=== PATIENT | male | born 1950 | race Caucasian/White ===

== ENCOUNTER → 2018-07-24 07:55 | Outpatient (CLI) | payer MEDICARE, OTHER, SELFPAY ==
[2018-07-24 09:21] LABS: Add Manual Diff / Slide Review NO; Basophils Absolute Auto 0 /uL (0-100); Eosinophils Absolute Auto 200 /uL (0-450); Eosinophils Percent Auto 5.9 % (2-4); Hematocrit 44.5 % (41-53); Hemoglobin 15.7 g/dL (13.5-17.5); Lymphocytes Absolute Auto 1100 /uL (1100-4500); Lymphocytes Percent Auto 25.4 % (25-40); Mean Corpuscular HGB Conc 35.4 % (30-36); Mean Corpuscular Hemoglobin 34.3 PG (26-34); Mean Corpuscular Volume 96.7 fL (80-100); Monocytes Absolute Auto 700 /uL (0-900); Neutrophils Absolute Auto 2200 /uL (1500-7000); Neutrophils Percent Auto 51.7 % (50-75); Platelet Count 196 X10^3/uL (150-400); Red Blood Cell Count 4.59 X10^6/uL (4.5-5.9); Red Cell Distribution Width 13.2 % (11.6-14.8); White Blood Cell Count 4.2 X10^3/uL (4.5-11.0)
[2018-07-24 09:51] LABS: Alanine Aminotransferase 27 IU/L (21-72); Albumin 4.6 g/dL (3.5-5.0); Albumin Globulin Ratio 1.4 (1.0-2.8); Alkaline Phosphatase 75 U/L (38-126); Aspartate Aminotransferase 27 IU/L (17-59); BUN Creatinine Ratio 17.8 (6-22); Bilirubin Total 1.1 mg/dL (0.2-1.3); Blood Urea Nitrogen 16 mg/dL (9-20); Calcium 9.7 mg/dL (8.4-10.2); Carbon Dioxide 26 mmol/L (22-32); Chloride 102 mmol/L (98-107); Cholesterol 191 mg/dL (140-199); Estimated Glomerular Filt Rate > 60.0 mL/min (>60); Globulin 3.3 g/dL (1.7-4.1); Glucose 100 mg/dL (80-110); HDL Cholesterol 39 mg/dL (40-60); HEMOLYSIS < 15 (0-50); LDL Cholesterol Calculated 126 mg/dL (<100); Potassium 3.5 mmol/L (3.4-5.1); Sodium 138 mmol/L (137-145); Total Protein 7.9 g/dL (6.3-8.2); Triglycerides 131 mg/dL (35-150)
[2018-07-24 10:12] LABS: Thyroid Stimulating Hormone 2.86 uIU/mL (0.47-4.68)
[2018-07-24 10:17] LABS: Prostate Specific Antigen Scrn 6.74 ng/mL (0.1-4.0)
== END ==
PROVIDERS: Visit Provider Internal Medicine
DX: I10 Essential (primary) hypertension (principal); E66.9 Obesity, unspecified; E78.00 Pure hypercholesterolemia, unspecified; K22.710 Barrett's esophagus with low grade dysplasia; Z12.5 Encounter for screening for malignant neoplasm of prostate
CPT/HCPCS: 36415; 80053; 80061; 84443; 85025; G0103

== ENCOUNTER → 2018-10-04 07:30 | Outpatient (CLI) | payer MEDICARE, OTHER, SELFPAY ==
[2018-10-04 12:46] LABS: Prostate Specific Antigen 6.08 ng/mL (0.10-4.00)
== END ==
PROVIDERS: PCP Internal Medicine; Visit Provider Urology
DX: R97.20 Elevated prostate specific antigen [PSA] (principal)
CPT/HCPCS: 36415; 84153

== ENCOUNTER → 2018-10-18 07:45 | Outpatient (CLI) | payer MEDICARE, OTHER, SELFPAY ==
[2018-10-18 09:47] LABS: Alanine Aminotransferase 31 IU/L (21-72); Aspartate Aminotransferase 32 IU/L (17-59); Cholesterol 158 mg/dL (140-199); HDL Cholesterol 40 mg/dL (40-60); LDL Cholesterol Calculated 95 mg/dL (<100); Triglycerides 116 mg/dL (35-150)
== END ==
PROVIDERS: PCP Internal Medicine; Visit Provider Internal Medicine
DX: E78.2 Mixed hyperlipidemia (principal)
CPT/HCPCS: 36415; 80061; 84450; 84460

== ENCOUNTER 2018-11-27 11:25 | Emergency (ER) | payer MEDICARE, OTHER, SELFPAY ==
[2018-11-27 11:44] VITALS: BP 140/77; PULSE 79; RESP 18; TEMP 37.3; O2SAT 99; BMI 33.5
--- NOTE | 2018-11-27 12:04 | ED_ITS ---
HPI - Fever <MAYRA Phillips - Last Filed: 11/27/18 19:35> General Chief Complaint: Fever Stated Complaint: post biopsy fever Time Seen by Provider: 11/27/18 11:27 Source: patient Mode of arrival: ambulatory Limitations: no limitations History of Present Illness HPI Narrative: 68-year-old male with history of enlarged prostate who just underwent a prostate biopsy at [facility] yesterday performed by Dr. Tran (per patient), presents emergency department today complaining of chills and fever starting this morning. He states the procedure went well, he had a small amount of blood in his urine afterwards but otherwise felt well. He was taking Cipro the day before the day of and the day after (today) as directed. He reports a small amount of postnasal drip from allergies but she has had for the past few weeks. He denies chest pain, shortness of breath, dysu dileep, rectal pressure, complaints of a full bladder, difficulty urinating other than some hesitancy which he has had before the procedure, abdominal pain, nausea, vomiting, diarrhea, headaches, weakness, change in vision, or syncope. Patient stated he called [facility] today and he was told to come to the emergency department in [place]. complaint: fever Related Data Home Medications Medication Instructions Recorded Confirmed amlodipine 10 mg PO DAILY 11/27/18 11/27/18 atorvastatin 20 mg PO QPM 11/27/18 11/27/18 ciprofloxacin HCl 500 mg PO BID 11/27/18 11/27/18 olmesartan 40 mg PO DAILY 11/27/18 11/27/18 triamterene-hydrochlorothiazid 1 cap PO DAILY 11/27/18 11/27/18 Previous Rx's Medication Instructions Recorded sulfamethoxazole-trimethoprim 1 tab PO BID 14 Days #28 tab 11/27/18 [Bactrim DS] sulfamethoxazole-trimethoprim 1 tab PO BID 14 Days #28 tab 11/27/18 [Bactrim DS] Allergies Allergy/AdvReac Type Severity Reaction Status Date / Time No Known Drug Allergies Allergy Verified 11/27/18 11:47 Review of Systems <MAYRA Phillips - Last Filed: 11/27/18 19:35> Review of Systems REVIEW OF SYSTEMS: GENERAL: Complains of fevers, see HPI. HENT: No head trauma, sore throat, or dysphagia. EYES: No loss of vision, double vision, eye pain, or irritation. CARDIOVASCULAR: No chest pain, palpitations, or orthopnea. RESPIRATORY: No shortness of breath or cough. GASTROINTESTINAL: Denies abdominal pain or vomiting. GENITOURINARY: Complains of small amount of blood in the urine as well as recent prostate biopsy, see HPI. MUSCULOSKELETAL: No pain, weakness, or trauma. INTEGUMENTARY: No rash, lesions, or pruritus. NEURO: No numbness, tingling, memory loss, confusion, or headaches. PSYCH: No behavior or mood changes. PFSH <MAYRA Phillips - Last Filed: 11/27/18 19:35> Medical History No significant medical problems (Acute) Urinary hesitancy (Acute) Social History Smoking Status: Never smoker Social History Smoking Status: Never smoker Exam <MAYRA Phillips - Last Filed: 11/27/18 19:35> Initial Vital Signs Initial Vital Signs: Vital Signs Temperature 99.2 F 11/27/18 11:44 Pulse Rate 79 11/27/18 11:44 Respiratory Rate 18 11/27/18 11:44 Blood Pressure 140/77 11/27/18 11:44 Pulse Oximetry 99 11/27/18 11:44 PHYSICAL EXAMINATION: GENERAL: Well groomed, alert, and cooperative. Answers questions promptly and appropriately. Patient appears mildly flushed. Vital signs noted. HENT: Normocephalic, atraumatic. Hearing intact. Oral mucosa is pink and moist. EYES: Conjunctiva pink, sclera white, no periorbital swelling. CARDIOVASCULAR: S1 and S2 sounds normal. Regular rate and rhythm, no murmurs, clicks, or bruits. No pedal edema. RESPIRATORY: Normal respiratory rate, trachea midline, airway patent. No stridor, nasal flaring or accessory muscle use. Lungs are clear in all burns without wheeze, rhonchi, or crackles. GASTROINTESTINAL: Bowel sounds normoactive. Abdomen is soft and non-tender. No organomegaly, no palpable masses. GENITALURINARY: No flank tenderness. MUSCULOSKELETAL: Normal gait and coordination. Equal tone and mass bilaterally. EXTREMITIES: CMS intact, no pedal edema. SKIN: Warm, dry, soft, appropriate color for ethnicity. No lesions, rashes, or wounds. NEURO: Alert and Oriented X 3. Good coordination. No ataxia, or sensory deficits, or cognitive issues. PSYCH: Appropriate affect and mood. <Manav Foster DO - Last Filed: 11/27/18 19:41> Initial Vital Signs Initial Vital Signs: Vital Signs Temperature 99.2 F 11/27/18 11:44 Pulse Rate 79 11/27/18 11:44 Respiratory Rate 18 11/27/18 11:44 Blood Pressure 140/77 11/27/18 11:44 Pulse Oximetry 99 11/27/18 11:44 Course <MAYRA Phillips - Last Filed: 11/27/18 19:35> Course Narrative: Patient was given 2gms of ceftriaxone IV and was sent home with Bactrim DS 1 pill b.i.d. x 14 days as directed by Dr. Yadav from [facility]. Strict return precautions given, patient was instructed to follow up with Urology as soon as possible and call him tomorrow to update them on his progress. Orders Ordered: ED Orders 11/27/18 12:20 Complete Blood Count AUTO DIFF Stat Comprehensive Metabolic Panel Stat Urine Culture Stat Urine Microscopic Stat Discontinued Medications Ceftriaxone Sodium (Rocephin) 2,000 mg IM NOW ONE Stop: 11/27/18 13:04 Last Admin: 11/27/18 13:46 Dose: Not Given Ceftriaxone Sodium/Dextrose (Rocephin) 2 gm in 50 mls @ 100 mls/hr IV NOW ONE Stop: 11/27/18 13:35 Last Infusion: 11/27/18 14:00 Dose: 0 mls/hr Admin: 11/27/18 13:27 Dose: 100 mls/hr Lidocaine HCl (Xylocaine 1%) 4.2 ml INJ NOW ONE Stop: 11/27/18 13:04 Last Admin: 11/27/18 13:46 Dose: Not Given Consultations Consultation #1: Dr. Yadav from [facility] was consulted about patient's condition, discussed that patient was appropriate to be treated outpatient with Bactrim. Discussed that he should follow-up with the clinic as soon as possible and give the clinic a call to multiple update them on his progress. Time: 13:00 Consultation #2: Patient staffed with Dr. Foster. Vital Signs - 8 hr 11/27/18 11:44 11/27/18 13:28 Temperature 99.2 F Pulse Rate 79 73 Respiratory Rate 18 16 Blood Pressure 140/77 Blood Pressure [Left Arm] 137/74 Pulse Oximetry 99 98 <Manav Foster DO - Last Filed: 11/27/18 19:41> Orders Ordered: ED Orders 11/27/18 12:20 Complete Blood Count AUTO DIFF Stat Comprehensive Metabolic Panel Stat Urine Culture Stat Urine Microscopic Stat Discontinued Medications Ceftriaxone Sodium (Rocephin) 2,000 mg IM NOW ONE Stop: 11/27/18 13:04 Last Admin: 11/27/18 13:46 Dose: Not Given Ceftriaxone Sodium/Dextrose (Rocephin) 2 gm in 50 mls @ 100 mls/hr IV NOW ONE Stop: 11/27/18 13:35 Last Infusion: 11/27/18 14:00 Dose: 0 mls/hr Admin: 11/27/18 13:27 Dose: 100 mls/hr Lidocaine HCl (Xylocaine 1%) 4.2 ml INJ NOW ONE Stop: 11/27/18 13:04 Last Admin: 11/27/18 13:46 Dose: Not Given Vital Signs - 8 hr 11/27/18 11:44 11/27/18 13:28 Temperature 99.2 F Pulse Rate 79 73 Respiratory Rate 18 16 Blood Pressure 140/77 Blood Pressure [Left Arm] 137/74 Pulse Oximetry 99 98 MDM - Fever <MAYRA Phillips - Last Filed: 11/27/18 19:35> Medical Records Attestation: I reviewed the patient's medical records. Lab Data Attestation: I reviewed the patient's lab results. Result diagrams: 11/27/18 12:20 11/27/18 12:20 Lab Results 11/27/18 11/27/18 11/27/18 Range/Units 12:20 12:20 12:20 WBC 11.9 H (4.5-11.0) X10^3/uL RBC 4.71 (4.5-5.9) X10^6/uL Hgb 15.9 (13.5-17.5) g/dL Hct 45.7 (41-53) % MCV 97.0 (80-100) fL MCH 33.8 (26-34) PG MCHC 34.8 (30-36) % RDW 12.7 (11.6-14.8) % Plt Count 169 (150-400) X10^3/uL Neut % (Auto) 86.2 H (50-75) % Lymph % (Auto) 3.9 L (25-40) % Ness % (Auto) 9.4 (3-14) % Eos % (Auto) 0.3 L (2-4) % Baso % (Auto) 0.2 (0-2) % Neut # (Auto) 73956 H (7211-1653) /uL Lymph # (Auto) 500 L (2421-0753) /uL Ness # (Auto) 1100 H (0-900) /uL Eos # (Auto) 0 (0-450) /uL Baso # (Auto) 0 (0-100) /uL Sodium 137 (137-145) mmol/L Potassium 3.6 (3.4-5.1) mmol/L Chloride 98 (98-107) mmol/L Carbon Dioxide 25 (22-32) mmol/L BUN 16 (9-20) mg/dL Creatinine 1.00 (0.66-1.25) mg/dL Estimated GFR > 60.0 (>60) mL/min BUN/Creatinine Ratio 16.0 (6-22) Glucose 114 H (80-110) mg/dL Calcium 9.6 (8.4-10.2) mg/dL Total Bilirubin 1.6 H (0.2-1.3) mg/dL AST 29 (17-59) IU/L ALT 27 (21-72) IU/L Alkaline Phosphatase 91 (38-126) U/L Total Protein 8.2 (6.3-8.2) g/dL Albumin 4.7 (3.5-5.0) g/dL Globulin 3.5 (1.7-4.1) g/dL Albumin/Globulin Ratio 1.3 (1.0-2.8) Urine RBC >100/hpf (0-5/HPF) Urine WBC 1-5/hpf (0-5/HPF) Ur Squamous Epith Cells 0-1 /hpf (0-5/HPF) Urine Bacteria Few (2-10) H (None) Ur Culture Indicated? Specimen cultured Micro UA Comment Leann esterase + Urine Dip Bedside Urine Glucose Negative Bedside Urine Bilirubin - Negative Bedside Urine Ketone +/- 5 Urine Specific [place] 1.015 Bedside Urine Occult Blood +++ Bedside Urine pH 6.0 Bedside Urine Protein +/- 15 Bedside Urine Urobilinogen - Negative Bedside Urine Nitrite - Negative Bedside Urine Leukocytes + 70 Esterase MDM Narrative Medical decision making narrative: 68-year-old male 1 day postop from a prostate biopsy presents with a fever. I suspect that he has acute bacterial prostatitis from his recent procedure due to slightly increased white blood cell count, positive urinalysis containing leukocyte Estrace, , bacteria and white blood cells, and elevated temperature with associated chills. [facility], where the procedure was performed, was contacted for specifics on plan of care. I do not suspect sepsis as his high blood cells were only slightly elevated, he was not tachycardic, and his temperature was below 100.3 F. strict return precautions given and follow-up instructions discussed. <Manav Foster DO - Last Filed: 11/27/18 19:41> Lab Data Lab Results 11/27/18 11/27/18 11/27/18 Range/Units 12:20 12:20 12:20 WBC 11.9 H (4.5-11.0) X10^3/uL RBC 4.71 (4.5-5.9) X10^6/uL Hgb 15.9 (13.5-17.5) g/dL Hct 45.7 (41-53) % MCV 97.0 (80-100) fL MCH 33.8 (26-34) PG MCHC 34.8 (30-36) % RDW 12.7 (11.6-14.8) % Plt Count 169 (150-400) X10^3/uL Neut % (Auto) 86.2 H (50-75) % Lymph % (Auto) 3.9 L (25-40) % Ness % (Auto) 9.4 (3-14) % Eos % (Auto) 0.3 L (2-4) % Baso % (Auto) 0.2 (0-2) % Neut # (Auto) 55308 H (7431-3591) /uL Lymph # (Auto) 500 L (7985-0327) /uL Ness # (Auto) 1100 H (0-900) /uL Eos # (Auto) 0 (0-450) /uL Baso # (Auto) 0 (0-100) /uL Sodium 137 (137-145) mmol/L Potassium 3.6 (3.4-5.1) mmol/L Chloride 98 (98-107) mmol/L Carbon Dioxide 25 (22-32) mmol/L BUN 16 (9-20) mg/dL Creatinine 1.00 (0.66-1.25) mg/dL Estimated GFR > 60.0 (>60) mL/min BUN/Creatinine Ratio 16.0 (6-22) Glucose 114 H (80-110) mg/dL Calcium 9.6 (8.4-10.2) mg/dL Total Bilirubin 1.6 H (0.2-1.3) mg/dL AST 29 (17-59) IU/L ALT 27 (21-72) IU/L Alkaline Phosphatase 91 (38-126) U/L Total Protein 8.2 (6.3-8.2) g/dL Albumin 4.7 (3.5-5.0) g/dL Globulin 3.5 (1.7-4.1) g/dL Albumin/Globulin Ratio 1.3 (1.0-2.8) Urine RBC >100/hpf (0-5/HPF) Urine WBC 1-5/hpf (0-5/HPF) Ur Squamous Epith Cells 0-1 /hpf (0-5/HPF) Urine Bacteria Few (2-10) H (None) Ur Culture Indicated? Specimen cultured Micro UA Comment Leann esterase + Urine Dip Bedside Urine Glucose Negative Bedside Urine Bilirubin - Negative Bedside Urine Ketone +/- 5 Urine Specific [place] 1.015 Bedside Urine Occult Blood +++ Bedside Urine pH 6.0 Bedside Urine Protein +/- 15 Bedside Urine Urobilinogen - Negative Bedside Urine Nitrite - Negative Bedside Urine Leukocytes + 70 Esterase Discharge Plan Departure Patient Disposition: Home Clinical Impression: Prostatitis, acute Discharge Date/Time: 11/27/18 14:00 Interventions: ED Discharge Assessment Last Done: 11/27/18 14:12 Instructions: DI for Fever (Symptom) -- Adult, DI for Acute Prostatitis Activity Restrictions/Additional Instructions: Thank you for entrusting me with your care today. As discussed, from your lab results it appears he may have bacterial prostatitis which is a common complication of a prostate biopsy. I prescribed you an antibiotic please take this as directed until it is completely gone. Call [facility] tomorrow and let them know how you are doing. Please keep your follow up appointment that is currently scheduled for Dec 05. Return to the emergency department if for uncontrollable vomiting, chest pain, high fevers that do no respond to ibuprofen or tylenol, or worsening symptoms. Prescriptions: New sulfamethoxazole-trimethoprim [Bactrim DS] 800-160 mg tablet 1 tab PO BID 14 Days Qty: 28 RF: 0 sulfamethoxazole-trimethoprim [Bactrim DS] 800-160 mg tablet 1 tab PO BID 14 Days Qty: 28 RF: 0 No Action atorvastatin 20 mg tablet 20 mg PO QPM RF: 0 triamterene-hydrochlorothiazid 37.5-25 mg capsule 1 cap PO DAILY RF: 0 amlodipine 10 mg tablet 10 mg PO DAILY RF: 0 olmesartan 40 mg tablet 40 mg PO DAILY RF: 0 ciprofloxacin HCl 500 mg tablet 500 mg PO BID RF: 0 Referrals: Avelino Samson MD [Primary Care Provider] - <Manav Foster DO - Last Filed: 11/27/18 19:41> Cosign ED Attending Coskaylynnature Attestation: I was immediately available in the department for consultation. Documentation has been reviewed. I agree with assessment and plan.
[2018-11-27 12:28] LABS: Add Manual Diff / Slide Review NO; Basophils Absolute Auto 0 /uL (0-100); Basophils Percent Auto 0.2 % (0-2); Eosinophils Absolute Auto 0 /uL (0-450); Eosinophils Percent Auto 0.3 % (2-4); Hematocrit 45.7 % (41-53); Hemoglobin 15.9 g/dL (13.5-17.5); Lymphocytes Absolute Auto 500 /uL (1100-4500); Lymphocytes Percent Auto 3.9 % (25-40); Mean Corpuscular HGB Conc 34.8 % (30-36); Mean Corpuscular Hemoglobin 33.8 PG (26-34); Monocytes Absolute Auto 1100 /uL (0-900); Monocytes Percent Auto 9.4 % (3-14); Neutrophils Absolute Auto 10300 /uL (1500-7000); Neutrophils Percent Auto 86.2 % (50-75); Platelet Count 169 X10^3/uL (150-400); Red Blood Cell Count 4.71 X10^6/uL (4.5-5.9); Red Cell Distribution Width 12.7 % (11.6-14.8); White Blood Cell Count 11.9 X10^3/uL (4.5-11.0)
[2018-11-27 12:40] LABS: Albumin 4.7 g/dL (3.5-5.0); Albumin Globulin Ratio 1.3 (1.0-2.8); Blood Urea Nitrogen 16 mg/dL (9-20); Calcium 9.6 mg/dL (8.4-10.2); Carbon Dioxide 25 mmol/L (22-32); Estimated Glomerular Filt Rate > 60.0 mL/min (>60); Globulin 3.5 g/dL (1.7-4.1); Glucose 114 mg/dL (80-110); HEMOLYSIS < 15 (0-50); Potassium 3.6 mmol/L (3.4-5.1); Sodium 137 mmol/L (137-145); Total Protein 8.2 g/dL (6.3-8.2)
[2018-11-27 12:42] LABS: Alanine Aminotransferase 27 IU/L (21-72); Alkaline Phosphatase 91 U/L (38-126); Aspartate Aminotransferase 29 IU/L (17-59); Bilirubin Total 1.6 mg/dL (0.2-1.3)
[2018-11-27 12:45] LABS: RBC Urine >100/HPF (0-5/HPF); Squamous Epithelial Cell Urine 0-1 /HPF (0-5/HPF); WBC Urine 1-5/HPF (0-5/HPF)
[2018-11-27 12:46] LABS: Bacteria Urine Few (2-10); Culture Indicated Urine Specimen Cultured; Urine Comments LEU ESTERASE +
[2018-11-27 13:02] LABS: Chloride 98 mmol/L (98-107)
[2018-11-27] MEDS: CEFTRIAXONE 2 GM/50 ML FROZ.PIGGY IV (13:27)
[2018-11-27 13:28] VITALS: BP 137/74; PULSE 73; RESP 16; O2SAT 98
== END 2018-11-27 14:00 | disposition home or self-care (01) ==
PROVIDERS: Emergency Provider Nurse Practitioner; PCP Internal Medicine
DX: N41.0 Acute prostatitis (principal)
CPT/HCPCS: 36415; 80053; 81003; 81015; 85025; 87086; 96365; 99283; 99284; J0696

== ENCOUNTER → 2019-04-05 07:53 | Outpatient (CLI) | payer MEDICARE, OTHER, SELFPAY ==
[2019-04-05 09:47] LABS: Blood Urea Nitrogen 17 mg/dL (9-20); Carbon Dioxide 29 mmol/L (22-32); Chloride 100 mmol/L (98-107); Estimated Glomerular Filt Rate > 60.0 mL/min (>60); Glucose 99 mg/dL (80-110); HEMOLYSIS < 15 (0-50); Potassium 3.9 mmol/L (3.4-5.1); Sodium 139 mmol/L (137-145)
== END ==
PROVIDERS: PCP Internal Medicine; Visit Provider Internal Medicine
DX: I10 Essential (primary) hypertension (principal); E78.00 Pure hypercholesterolemia, unspecified; E78.2 Mixed hyperlipidemia
CPT/HCPCS: 36415; 80048

== ENCOUNTER → 2019-04-16 08:10 | Outpatient (CLI) | payer MEDICARE, OTHER, SELFPAY ==
[2019-04-16 08:53] LABS: Add Manual Diff / Slide Review NO; Basophils Absolute Auto 100 /uL (0-100); Basophils Percent Auto 0.6 % (0-2); Eosinophils Absolute Auto 200 /uL (0-450); Hematocrit 46.1 % (41-53); Hemoglobin 16.2 g/dL (13.5-17.5); Lymphocytes Absolute Auto 900 /uL (1100-4500); Lymphocytes Percent Auto 8.3 % (25-40); Mean Corpuscular HGB Conc 35.1 % (30-36); Mean Corpuscular Hemoglobin 33.9 PG (26-34); Mean Corpuscular Volume 96.6 fL (80-100); Monocytes Absolute Auto 1200 /uL (0-900); Monocytes Percent Auto 10.5 % (3-14); Neutrophils Absolute Auto 8700 /uL (1500-7000); Neutrophils Percent Auto 78.6 % (50-75); Platelet Count 187 X10^3/uL (150-400); Red Blood Cell Count 4.77 X10^6/uL (4.5-5.9); Red Cell Distribution Width 12.8 % (11.6-14.8)
[2019-04-16 09:29] LABS: Erythrocyte Sedimentation Rate 3 MM/HR (0-15)
== END ==
PROVIDERS: PCP Internal Medicine; Visit Provider Internal Medicine
DX: Z23 Encounter for immunization (principal); I74.3 Embolism and thrombosis of arteries of the lower extremities; M35.3 Polymyalgia rheumatica
CPT/HCPCS: 36415; 85025; 85651

== ENCOUNTER → 2019-04-30 15:41 | Outpatient (CLI) | payer MEDICARE, OTHER, SELFPAY ==
--- NOTE | 2019-04-30 | DI.ECHO.S_ITS ---
[place] [facility]---------+ [facility] +---------+ : : [address] : : : : [id number] : : : : Phone: [phone]+ Echocardiogram Report + + :Name: VU JACOME JR Study Date: 04/30/2019 Height: 54 in : :[facility] Weight: 195 lb : : Gender: Male BSA: 1.7 m2 : :: 1950 Age: 68 yrs BP: 142/86 mmHg: :Reason For Study: Hypertension : :Ordering Physician: Dr. You : :[place] Performed By: Walt Silva : :Referring: BG CAMPBELL : + + Interpretation Summary Mild concentric left ventricular hypertrophy with ejection fraction 55-60%. Mild aortic valve sclerosis. Mildly dilated aortic root. Procedure: A two-dimensional transthoracic echocardiogram with color flow and Doppler was performed. The study quality was technically adequate. There is no prior echocardiogram noted for this patient. The patient was in normal sinus rhythm during the exam. Left Ventricle: The left ventricle is normal in size. There is mild concentric left ventricular hypertrophy. The ejection fraction is estimated to be 55-60%. Left ventricular wall motion is normal. Right Ventricle: The right ventricle is normal in size and function. Atria: The left atrial size is normal. Right atrial size is normal. The interatrial septum is intact with no evidence for an atrial septal defect. Mitral Valve: The mitral valve is normal in structure and function. There is trace mitral regurgitation. Aortic Valve: The aortic valve is trileaflet. The aortic valve opens well. There is mild aortic valve sclerosis. No aortic regurgitation is present. Tricuspid Valve: The tricuspid valve is normal in structure and function. There is trace tricuspid regurgitation. Pulmonary artery pressures cannot be estimated because of the lack of a measurable TR jet velocity. Pulmonic Valve: The pulmonic valve is not well visualized. There is mild pulmonic regurgitation. Great Vessels: The aortic root is mildly dilated. The dimensions of the ascending aorta are normal. The pulmonary artery is normal size. The IVC is of normal diameter and collapses greater than 50% with a sniff. This suggests a low right atrial pressure of 3 mm Hg. Pericardium/ Pleura There is no pericardial effusion. There is no pleural effusion. MMode/2D Measurements & Calculations LVIDd: 4.6 cm LVOT diam: 2.3 cm LVIDs: 2.8 cm Ao root diam: 3.9 cm FS: 39.4 % Aortic Jxn: 2.8 cm EPSS: 0.66 cm asc Aorta Diam: 3.5 cm IVSd: 1.1 cm LVPWd: 1.1 cm LV garza. diameter/BSA (cm/m^2): 2.7 LV sys. diameter/BSA (cm/m^2): 1.6 LA A2 area: 17.4 cm2 RA long axis: 5.7 cm LA A4 area: 21.1 cm2 RA area: 12.0 cm2 LA length (vol): 5.6 cm RA vol: 21.5 ml LA vol: 55.3 ml RA : 12.6 ml/m2 LA vol index: 32.3 ml/m2 TAPSE: 2.2 cm Doppler Measurements & Calculations Ao V2 max: 112.6 cm/sec LVOT Max Wyatt: 88.5 cm/sec Ao V2 mean: 77.0 cm/sec LV V1 max P.1 mmHg Ao max P.1 mmHg LV V1 VTI: 20.1 cm Ao mean P.7 mmHg SAHNA(I,D): 3.8 cm2 Ao V2 VTI: 22.2 cm SHANA(V,D): 3.3 cm2 sev ratio: 0.91 SHANA indexed to BSA (cm^2/m^2): 2.2 MV E max wyatt: 71.5 cm/sec PA V2 max: 48.4 cm/sec MV A max wyatt: 102.2 cm/sec PA V2 mean: 32.6 cm/sec MV E/A: 0.70 PA mean P.50 mmHg Med Peak E' Wyatt: 9.5 cm/sec PA Accel Time: 0.07 sec E/E' med: 7.5 Lat Peak E' Wyatt: 11.6 cm/sec E/E' lat: 6.1 E/e' average: 6.8 MV dec time: 0.20 sec SV(LVOT): 84.9 ml Electronically signed by: Ayad Lamar on Reading Physician:04/30/2019 04:32 PM
== END ==
PROVIDERS: PCP Internal Medicine; Visit Provider Internal Medicine
DX: I35.8 Other nonrheumatic aortic valve disorders (principal); I37.1 Nonrheumatic pulmonary valve insufficiency; I10 Essential (primary) hypertension; I74.3 Embolism and thrombosis of arteries of the lower extremities
CPT/HCPCS: 93306

== ENCOUNTER → 2019-05-21 08:59 | Outpatient (CLI) | payer MEDICARE, OTHER, SELFPAY ==
[2019-05-21 10:23] LABS: Prostate Specific Antigen 4.75 ng/mL (0.10-4.00)
== END ==
PROVIDERS: PCP Internal Medicine; Visit Provider Urology
DX: R97.20 Elevated prostate specific antigen [PSA] (principal)
CPT/HCPCS: 36415; 84153

== ENCOUNTER → 2020-01-22 07:13 | Outpatient (CLI) | payer MEDICARE, OTHER, SELFPAY ==
[2020-01-22 09:25] LABS: Alanine Aminotransferase 24 IU/L (<50); Albumin 4.2 g/dL (3.5-5.0); Albumin Globulin Ratio 1.4 (1.0-2.8); Alkaline Phosphatase 69 U/L (38-126); Aspartate Aminotransferase 31 IU/L (17-59); BUN Creatinine Ratio 19.3 (6-22); Bilirubin Total 0.8 mg/dL (0.2-1.3); Blood Urea Nitrogen 17 mg/dL (9-20); Calcium 9.3 mg/dL (8.4-10.2); Carbon Dioxide 25 mmol/L (22-32); Chloride 103 mmol/L (98-107); Cholesterol 139 mg/dL (140-199); Estimated Glomerular Filt Rate > 60.0 mL/min (>60); Globulin 2.9 g/dL (1.7-4.1); Glucose 87 mg/dL (80-110); HDL Cholesterol 51 mg/dL (40-60); HEMOLYSIS < 15 (0-50); LDL Cholesterol Calculated 73 mg/dL (<100); Potassium 3.8 mmol/L (3.4-5.1); Sodium 139 mmol/L (137-145); Total Protein 7.1 g/dL (6.3-8.2); Triglycerides 75 mg/dL (35-150)
== END ==
PROVIDERS: PCP Internal Medicine; Referring Provider Internal Medicine; Visit Provider Urology
DX: E78.00 Pure hypercholesterolemia, unspecified (principal); E78.2 Mixed hyperlipidemia; R97.20 Elevated prostate specific antigen [PSA]
CPT/HCPCS: 36415; 80053; 80061; 84153

== ENCOUNTER → 2020-05-28 07:49 | Outpatient (CLI) | payer MEDICARE, OTHER, SELFPAY ==
[2020-05-28] MEDS: COVID-19 VACC #1, MRNA(MOD) 100 MCG/0.5 ML VIAL IM (07:54)
== END ==
PROVIDERS: PCP Internal Medicine; Visit Provider Internal Medicine
DX: Z23 Encounter for immunization (principal)
CPT/HCPCS: 0011A; 91301

== ENCOUNTER → 2020-06-25 07:48 | Outpatient (CLI) | payer MEDICARE, OTHER, SELFPAY ==
[2020-06-25] MEDS: COVID-19 VACC #2, MRNA(MOD) 100 MCG/0.5 ML VIAL IM (07:52)
== END ==
PROVIDERS: PCP Internal Medicine; Visit Provider Internal Medicine
DX: Z23 Encounter for immunization (principal)
CPT/HCPCS: 0012A; 91301

== ENCOUNTER → 2020-12-31 09:16 | Outpatient (CLI) | payer MEDICARE, OTHER, SELFPAY ==
[2020-12-31 10:52] LABS: Basophils Absolute Auto 100 /uL (0-100); Basophils Percent Auto 0.8 % (0-2); Eosinophils Absolute Auto 500 /uL (0-450); Eosinophils Percent Auto 7.5 % (2-4); Hematocrit 45.4 % (41-53); Hemoglobin 15.7 g/dL (13.5-17.5); Lymphocytes Absolute Auto 1200 /uL (1100-4500); Lymphocytes Percent Auto 19.7 % (25-40); Mean Corpuscular HGB Conc 34.5 % (30-36); Mean Corpuscular Volume 95.8 fL (80-100); Monocytes Absolute Auto 900 /uL (0-900); Monocytes Percent Auto 13.9 % (3-14); Neutrophils Absolute Auto 3600 /uL (1500-7000); Neutrophils Percent Auto 58.1 % (50-75); Platelet Count 185 X10^3/uL (150-400); Red Blood Cell Count 4.74 X10^6/uL (4.5-5.9); Red Cell Distribution Width 12.8 % (11.6-14.8); White Blood Cell Count 6.2 X10^3/uL (4.5-11.0)
[2020-12-31 10:54] LABS: Uric Acid 7.9 mg/dL (3.5-8.5)
[2020-12-31 10:57] LABS: Add Manual Diff / Slide Review SLIDE REVIEW
[2020-12-31 11:23] LABS: RBC Morphology Normal Morphology
== END ==
PROVIDERS: PCP Internal Medicine; Referring Provider Internal Medicine; Visit Provider Internal Medicine
DX: I10 Essential (primary) hypertension (principal); M35.3 Polymyalgia rheumatica; I74.3 Embolism and thrombosis of arteries of the lower extremities
CPT/HCPCS: 36415; 84550; 85025

== ENCOUNTER → 2021-01-27 13:58 | Outpatient (CLI) | payer MEDICARE, OTHER, SELFPAY ==
[2021-01-27 15:57] LABS: Prostate Specific Antigen 5.03 ng/mL (0.10-4.00)
== END ==
PROVIDERS: PCP Internal Medicine; Referring Provider Internal Medicine; Visit Provider Internal Medicine
DX: Z12.5 Encounter for screening for malignant neoplasm of prostate (principal)
CPT/HCPCS: 36415; 84153; G0103

== ENCOUNTER → 2021-09-03 09:25 | Outpatient (CLI) | payer MEDICARE, OTHER, SELFPAY ==
[2021-09-03 10:16] LABS: Hematocrit 45.2 % (41-53); Mean Corpuscular HGB Conc 35.4 % (30-36); Mean Corpuscular Hemoglobin 34.1 PG (26-34); Mean Corpuscular Volume 96.5 fL (80-100); Platelet Count 231 X10^3/uL (150-400); Red Blood Cell Count 4.69 X10^6/uL (4.5-5.9); Red Cell Distribution Width 13.3 % (11.6-14.8); White Blood Cell Count 6.5 X10^3/uL (4.5-11.0)
[2021-09-03 10:39] LABS: Alanine Aminotransferase 24 IU/L (<50); Albumin 4.6 g/dL (3.5-5.0); Albumin Globulin Ratio 1.4 (1.0-2.8); Alkaline Phosphatase 83 U/L (38-126); Aspartate Aminotransferase 33 IU/L (17-59); BUN Creatinine Ratio 16.1 (6-22); Bilirubin Total 0.8 mg/dL (0.2-1.3); Blood Urea Nitrogen 15 mg/dL (9-20); Calcium 9.4 mg/dL (8.4-10.2); Carbon Dioxide 25 mmol/L (22-32); Chloride 105 mmol/L (98-107); Cholesterol 154 mg/dL (140-199); Estimated Glomerular Filt Rate > 60 mL/min (>60); Globulin 3.2 g/dL (1.7-4.1); Glucose 97 mg/dL (80-110); HDL Cholesterol 34 mg/dL (40-60); HEMOLYSIS < 15 (0-50); LDL Cholesterol Calculated 67 mg/dL (<100); Potassium 4.2 mmol/L (3.4-5.1); Sodium 138 mmol/L (137-145); Total Protein 7.8 g/dL (6.3-8.2); Triglycerides 265 mg/dL (35-150); Uric Acid 4.2 mg/dL (3.5-8.5)
[2021-09-03 11:07] LABS: Prostate Specific Antigen 7.23 ng/mL (0.10-4.00)
[2021-09-03 11:09] LABS: TSH w/ Reflex to FT4 2.31 uIU/mL (0.47-4.68)
== END ==
PROVIDERS: PCP Internal Medicine; Referring Provider Internal Medicine; Visit Provider Internal Medicine
DX: E78.2 Mixed hyperlipidemia (principal); R97.20 Elevated prostate specific antigen [PSA]; I10 Essential (primary) hypertension; M10.9 Gout, unspecified
CPT/HCPCS: 36415; 80053; 80061; 84153; 84443; 84550; 85027

== ENCOUNTER → 2022-05-04 09:08 | Outpatient (CLI) | payer MEDICARE, OTHER, SELFPAY ==
[2022-05-04 11:31] LABS: COVID19 -Nasal RAPID Negative (Negative)
== END ==
PROVIDERS: PCP Internal Medicine; Visit Provider Surgery
DX: Z20.822 Contact with and (suspected) exposure to COVID-19 (principal); Z01.812 Encounter for preprocedural laboratory examination
CPT/HCPCS: 87635; C9803

== ENCOUNTER 2022-05-05 08:06 | Day surgery (SDC) | payer MEDICARE, OTHER, SELFPAY ==
--- NOTE | 2022-05-05 | PATH_ITS ---
[facility] Accession Number: [id number] . 01 Material submitted: . PART A: stomach - ANTRUM BIOPSIES PART B: esophagus - DISTAL ESOPHAGUS . 01 Diagnosis: A. Stomach, Antrum, Biopsies: Acute erosive gastritis with reactive gastropathy. Negative for Helicobacter by immunohistochemistry. Negative for intestinal metaplasia. Negative for dysplasia or malignancy. . B. Distal esophagus, Biopsy: Ulcerated squamous mucosa. A PAS stain is negative for fungal organisms. No viral cytopathic effects identified. Negative for dysplasia and malignancy. [facility] 05/11/2022 1057 Local . 01 Electronically signed: . Yoly Rankin MD, Pathologist NPI- [id number] . 01 Gross description: . Part A: ANTRUM BIOPSIES: Received in formalin are 2 fragment(s) of miner, soft tissue measuring 0.3 x 0.2 x 0.1 cm to 0.2 x 0.2 x 0.1 cm submitted entirely in 1 cassette(s) Part B: DISTAL ESOPHAGUS: Received in formalin are multiple fragment(s) of miner, soft tissue measuring 0.7 x 0.2 x 0.1 cm in aggregate submitted entirely in 1 cassette(s) /CPE 05/06/2022 0648 Local . 01 Microscopic: . A. An immunohistochemical stain was performed to evaluate for Helicobacter organisms and is negative. The control stain showed appropriate reactivity. . B. A PAS stain was performed to evaluate for fungal organisms and is negative. The control stain showed appropriate reactivity. . . * This test was developed and its performance characteristics determined by [employer]. It has not been cleared or approved by the U.S. Food and Drug Administration. The FDA has determined that such clearance or approval is not necessary. This test is used for clinical purposes. It should not be regarded as investigational or for research. . 01 Pathologist provided ICD-10: K25.9 . 01 CPT . 866076, 715530, F09666, 416058 Specimen Comment: A courtesy copy of this report has been sent to [phone] Performed at: 01 [facility] [address] [place] [address], [place], [place] [id number] MD Mandeep Chavez MD Phone: [phone]
[2022-05-05 08:19] VITALS: BP 144/78; PULSE 69; RESP 17; TEMP 36.5; O2SAT 96; BMI 31.8
[2022-05-05] MEDS: LACTATED RINGERS 1,000 ML 84 ML IV (08:29)
--- NOTE | 2022-05-05 10:15 | PM.HP.1 ---
History of Present Illness History of Present Illness Date Patient Seen: 05/05/22 Time Patient Seen: 10:15 Chief complaint: Colonoscopy/EGD Narrative: Papo is here for his EGD and colonoscopy. Please see the office note from March for details. He has a history of Leyva's esophagus. Patient History Medical History Advanced directives, counseling/discussion Allergic rhinitis Allergies (~1969) Barretts esophagus (~2004) BPH w urinary obs/LUTS Chicken pox (~1959) Chronic back pain (~2009) Elevated PSA Essential hypertension GERD without esophagitis Gout (~2020) Measles (~1959) Medicare annual wellness visit, initial Mixed hyperlipidemia Mumps (~1959) No significant medical problems Obesity (BMI 30.0-34.9) Primary osteoarthritis involving multiple joints Screening for colon cancer Urinary hesitancy Surgical History Anesthesia History of lithotripsy (~1993) History of lithotripsy (~1999) Family & Social History Family History Father History of heart disease Mother History of heart disease Brother Brain tumor Grandfather History of heart disease Grandmother History of heart disease Grandmother Stroke Social History: household members spouse Tobacco & Substance use: Smoking Status Never smoker alcohol intake current alcohol intake frequency 0-2 drinks per day Substance Use Type does not use Meds Home Medications and Allergies Home Medications Medication Instructions Recorded Confirmed Type allopurinol 300 mg tablet 300 mg PO DAILY #90 tabs 09/03/21 05/05/22 Rx amlodipine 10 mg tablet 10 mg PO DAILY #90 tabs 09/03/21 05/05/22 Rx ascorbate calcium (vitamin C) 500 500 mg PO DAILY 09/03/21 05/05/22 History mg tablet atorvastatin 20 mg tablet 20 mg PO QPM #90 tabs 09/03/21 05/05/22 Rx flaxseed oil 1,000 mg capsule 1,000 mg PO DAILY 09/03/21 05/05/22 History multivitamin 1 tab PO DAILY 09/03/21 05/05/22 History olmesartan 40 mg tablet 40 mg PO DAILY #90 tabs 09/03/21 05/05/22 Rx omeprazole 20 mg tablet,delayed 20 mg PO DAILY 09/03/21 05/05/22 History release saw palmetto 160 mg capsule 320 mg PO DAILY 09/03/21 05/05/22 History triamterene 37.5 1 cap PO DAILY #90 caps 09/03/21 05/05/22 Rx mg-hydrochlorothiazide 25 mg capsule sodium sul 1.479 gram-potas ch See Rx Instructions PO PER PKG DIR 03/18/22 05/05/22 Rx 0.188 gram-magnes sul 0.225 gram #24 tabs tablet (Sutab) Allergies Allergy/AdvReac Type Severity Reaction Status Date / Time No Known Drug Allergies Allergy Verified 05/05/22 08:16 Exam Vital Signs (past 8 hours): - 05/05/22 08:19 Temperature 97.7 F Pulse Rate 69 Respiratory Rate 17 Blood Pressure 144/78 H Pulse Oximetry 96 Oxygen Delivery Method Room Air Oxygen Delivery Method Room Air Const General: healthy appearing Assessment & Plan Assessment and plan (1) Screening for colon cancer: Status: Acute (2) Barretts esophagus: Qualifiers: Leyva's esophagus type: without dysplasia Qualified Code(s): K22.70 - Leyva's esophagus without dysplasia Status: Acute Plan Plan for EGD and colonoscopy. Reviewed the risks and benefits he would like to proceed. Time Spent With Patient Critical Care time: I spent a total of [] minutes of critical care time on this patient's care today; this time is exclusive of procedural time.
[2022-05-05 10:58] VITALS: BP 124/84; PULSE 79; RESP 16; TEMP 36.6; O2SAT 95
--- NOTE | 2022-05-05 11:02 | P.OP.EGD&C_ITS ---
Operative Date/Time/Diagnoses Date of procedure: 05/05/22 Time of procedure: 11:02 Pre-op diagnosis: History of Leyva's and colon cancer screening Post-op diagnosis: same Procedure & Clinicians Study performed: EGD and colonoscopy Same procedure as scheduled: Yes Surgeon: Luke Tierney Procedure Notes Procedure in detail: Surgeon: Luke Tierney MD Anesthesia: Andrea Norman MD Procedure in detail: A timeout was performed. A bite blocked was placed and monitors were attached to the patient. The patient was positioned in a left lateral decubitus position. Sedation was administered by Dr. Norman. Once the patient was sedated the endoscope was inserted through the bite block and passed through the esophagus and stomach and into the duodenum. There was no abnormality in the duodenum. There was moderate antritis and random biopsies were taken from the antrum.. We then withdrew the scope into the stomach. No other gastric lesions were noted. The endoscope was retroflexed and a moderate- sized hiatal hernia was noted spanning approximately 4 cm. The endoscope was straightned and withdrawn into the esophagus. There were some distal esophagitis just above the Z-line and random biopsies were taken. Findings: Antritis, 4 cm hiatal hernia and distal esophagitis EBL: 5 mL Next we repositioned the patient for a colonoscopy. A digital rectal exam was performed and was normal. The colonoscope was inserted and advanced to the cecum. The appendiceal orifice was identified and photographed. The scope was slowly withdrawn over greater than 6 minutes. No abnormalities were seen. The scope was retroflexed in the rectum and no other abnormalities were noted. Findings: Normal colon EBL: 0 Scope withdrawal time: 9 minutes Sedation minutes: 14 minutes Post-procedure Recommendations: Colonscopy in 10 years Disposition: PACU
[2022-05-05 11:04] VITALS: BP 141/84; PULSE 71; RESP 16; O2SAT 97
[2022-05-05 11:09] VITALS: BP 144/88; PULSE 69; RESP 14; O2SAT 96
[2022-05-05 11:17] VITALS: BP 143/96; PULSE 65; RESP 12; TEMP 36.9; O2SAT 97
== END 2022-05-05 11:44 | disposition home or self-care (01) ==
PROVIDERS: PCP Internal Medicine; Referring Provider Surgery; Visit Provider Surgery
PROC: 0DJ08ZZ Inspection of Upper Intestinal Tract, Via Natural or Artificial Opening Endoscopic (ICD-10-PCS; CPT 43235; principal; 2022-05-05 09:15)
PROC: 0DJD8ZZ Inspection of Lower Intestinal Tract, Via Natural or Artificial Opening Endoscopic (ICD-10-PCS; CPT 45378; 2022-05-05 09:15)
DX: Z12.11 Encounter for screening for malignant neoplasm of colon (principal); Z87.19 Personal history of other diseases of the digestive system; K20.90 Esophagitis, unspecified without bleeding; K44.9 Diaphragmatic hernia without obstruction or gangrene; K29.50 Unspecified chronic gastritis without bleeding; K31.9 Disease of stomach and duodenum, unspecified
CPT/HCPCS: 43239; G0105; J2704

== ENCOUNTER → 2022-08-04 08:55 | Outpatient (CLI) | payer MEDICARE, OTHER, SELFPAY | PROVIDERS: PCP Internal Medicine; Visit Provider Urology | DX: N40.1 Benign prostatic hyperplasia with lower urinary tract symptoms (principal); N13.8 Other obstructive and reflux uropathy; R33.9 Retention of urine, unspecified; R82.81 Pyuria; R97.20 Elevated prostate specific antigen [PSA]; Z87.442 Personal history of urinary calculi; Z87.898 Personal history of other specified conditions | CPT/HCPCS: 51798; 81002; 87086; 99214 ==

== ENCOUNTER → 2022-08-05 09:14 | Outpatient (CLI) | payer MEDICARE, OTHER, SELFPAY ==
[2022-08-05 10:01] LABS: BUN Creatinine Ratio 17.6 (6-22); Blood Urea Nitrogen 15 mg/dL (9-20); Calcium 9.8 mg/dL (8.4-10.2); Carbon Dioxide 27 mmol/L (22-32); Chloride 100 mmol/L (98-107); Estimated Glomerular Filt Rate > 60 mL/min (>60); Glucose 107 mg/dL (80-110); HEMOLYSIS < 15 (0-50); Potassium 3.7 mmol/L (3.4-5.1); Sodium 136 mmol/L (137-145)
== END ==
PROVIDERS: PCP Internal Medicine; Referring Provider Urology; Visit Provider Urology
DX: R82.81 Pyuria (principal); Z87.442 Personal history of urinary calculi; Z87.898 Personal history of other specified conditions
CPT/HCPCS: 36415; 80048

== ENCOUNTER → 2022-08-10 13:17 | Outpatient (CLI) | payer MEDICARE, OTHER, SELFPAY ==
[2022-08-12 08:42] LABS: PSA Free % 23.7 % (.); PSA, Total 5.2 ng/mL (0.0-4.0)
== END ==
PROVIDERS: PCP Internal Medicine; Referring Provider Urology; Visit Provider Urology
DX: R97.20 Elevated prostate specific antigen [PSA] (principal)
CPT/HCPCS: 36415; 84153; 84154

== ENCOUNTER → 2022-08-12 09:15 | Outpatient (CLI) | payer MEDICARE, OTHER, SELFPAY ==
--- NOTE | 2022-08-12 09:17 | DI.CT.S_ITS ---
PROCEDURE: CT ABDOMEN PELVIS WO/W CON INDICATIONS: gross hematuria and current pyuria TECHNIQUE: Optional 5 mm thick noncontrast images acquired from the diaphragm to the symphysis pubis. After the administration of intravenous contrast, 5 mm thick images acquired from the diaphragm to the symphysis pubis after a 10-minute delay. 2 mm thick coronal and sagittal reformats were then performed of the kidneys and ureters. For radiation dose reduction, the following was used: automated exposure control, adjustment of mA and/or kV according to patient size. COMPARISON: None. FINDINGS: Image quality: Excellent. Lung bases: Lung bases are clear. Heart size is normal. Urinary system: 1.9 centimeter left renal stone (719 HU). Additional punctate non-obstructing right-sided stone. Benign renal cysts, including a hemorrhagic cyst on the posterior margin of the right kidney. Junctional cortical defect of the anterior right kidney, consistent with prior infarct or infection. 8 millimeter filling defect within the left posterior bladder wall (series 2, image 180). Bladder stones present. 1.7 centimeter retroperitoneal nodularity posterior to the IVC (2/74); this has attenuation following blood pool. Enlarged right obturator chain node measuring 1.4 centimeter (2/175). Other solid organs: Liver is normal in size and enhancement. Fluid attenuating liver cysts. Gallbladder contains stones . Biliary system is non dilated. Pancreas enhances normally. Spleen is normal in size and enhancement. No adrenal nodules. Peritoneum and bowel: Bowel loops demonstrate normal wall thickness and caliber. No free fluid or air. Colonic diverticulosis without evidence of diverticulitis. Nodes and vessels: No retroperitoneal or mesenteric adenopathy by size criteria. Aorta and inferior vena cava are normal in size. Abdominal wall: No ventral hernias. Pelvis: No pathologic free pelvic fluid. No inguinal hernias or adenopathy. Bones: No suspicious bony lesions. No vertebral body compression fractures. IMPRESSION: Filling defect within the left posterior bladder wall measuring 8 millimeters. Findings are concerning for transitional cell carcinoma. Urology consultation is recommended. Enlarged right obturator chain node measuring 1.4 centimeter short axis. Findings are indeterminate but matt disease is not entirely excluded. Retro IVC nodularity measuring 1.7 centimeter following blood pool, associated with an accessory right renal artery. Findings are concerning for aneurysm. Recommend dedicated CTA of the abdomen for confirmation. Dictated by: Rodrigue Edmonds M.D. on 08/12/2022 at 12:06 Approved by: Rodrigue Edmonds M.D. on 08/12/2022 at 12:18
== END ==
PROVIDERS: PCP Internal Medicine; Referring Provider Urology; Visit Provider Urology
DX: R33.9 Retention of urine, unspecified (principal); Z87.898 Personal history of other specified conditions; Z87.442 Personal history of urinary calculi; N40.1 Benign prostatic hyperplasia with lower urinary tract symptoms; N13.8 Other obstructive and reflux uropathy
CPT/HCPCS: 74178; Q9967

== ENCOUNTER → 2022-08-19 08:20 | Outpatient (CLI) | payer MEDICARE, OTHER, SELFPAY | PROVIDERS: PCP Internal Medicine; Visit Provider Urology | DX: D49.4 Neoplasm of unspecified behavior of bladder (principal); N40.1 Benign prostatic hyperplasia with lower urinary tract symptoms; N13.8 Other obstructive and reflux uropathy; R33.9 Retention of urine, unspecified; N20.0 Calculus of kidney; N21.0 Calculus in bladder; R93.89 Abnormal findings on diagnostic imaging of other specified body structures; R97.20 Elevated prostate specific antigen [PSA]; Z87.442 Personal history of urinary calculi; Z87.898 Personal history of other specified conditions | CPT/HCPCS: 52000; 81002; 87086; 99214 ==

== ENCOUNTER 2022-08-23 06:47 | Day surgery (SDC) | payer MEDICARE, OTHER, SELFPAY ==
[2022-08-22 14:26] VITALS: BMI 33.5
[2022-08-23] VITALS (7 sets, daily range): BP systolic 131–149; BP diastolic 82–88; PULSE 61–71; RESP 18–21; TEMP 36–36.2; O2SAT 95–99; BMI 33.5
--- NOTE | 2022-08-23 | PATH_ITS ---
[facility] Accession Number: [id number] No. of containers..01 Tissue . 01 Material submitted: . bladder - LEFT LATERAL BLADDER WALL TUMOR . 01 Diagnosis: Urinary Bladder, Left Lateral Wall, Biopsy: Low-grade papillary urothelial carcinoma, noninvasive. - Muscularis propria not present in specimen. MRV 08/25/2022 1802 Local . 01 Electronically signed: . Digna Aponte MD, Pathologist NPI- [id number] . 01 Gross description: . LEFT LATERAL BLADDER WALL TUMOR: Received in formalin are multiple fragment(s) of miner, soft tissue measuring 0.1 x 0.1 x 0.1 cm to 0.3 x 0.3 x 0.3 cm submitted entirely in 1 cassette(s) /KELLY 08/24/2022 1911 Local . 01 Pathologist provided ICD-10: C67.9 . 01 CPT . 344000 Specimen Comment: A courtesy copy of this report has been sent to [phone] Performed at: 01 [facility] [address] [place] [address] [id number] MD Mandeep Chavez MD Phone: [phone]
--- NOTE | 2022-08-23 07:12 | SUR.OPER ---
Lithotomy on padded OR bed, head on pillow, arms secured on padded arm boards at <90 degrees abduction. Legs secured in padded yellow fins stirrups.
--- NOTE | 2022-08-23 07:35 | PM.PREOP ---
Pre-operative Note COVID-19 COVID-19 status: Not tested Criteria for continued procedure: Delay expected to result in less-positive ultimate med/surg outcome and Non-surgical alternatives not available or appropriate per current SOC Interval Note History & Physical reviewed/Exam performed by Physician: Yes Changes to H&P: No
[2022-08-23] MEDS: LACTATED RINGERS 1,000 ML 21 ML IV (07:39)
[2022-08-23] MEDS: CEFAZOLIN 2 GM/100 ML PREMIX 100 ML IV (07:50)
--- NOTE | 2022-08-23 08:59 | P.OP_ITS ---
Procedure & Clinicians Procedure: Transurethral resection of bladder tumor (2 cm tumor), cystolitholapaxy (mechanical) with evacuation of bladder stone fragments, placement of Matos catheter. Same procedure as scheduled: Yes Indications: This is a very pleasant 71-year-old gentleman who through imaging and workup for hematuria was found to have bladder stone and bladder tumor. He presents at this time for cystolitholapaxy and Transurethral resection of bladder tumor. Patient also is noted to have incomplete emptying of the bladder with a large bladder volume. Surgeon: Lavon Lion Click Yes if Unassisted: Yes Anesthesia Type: General Operative Notes Findings: Urethra is normal along its length with normal mucosa. The sphincter is well coapted and the prostate exhibits severe obstructive character with serpiginous varices. The ureteral orifices were not distinctly observed. The bladder tumor was 2 cm on the left lateral wall. There were 2 stones that had a rather spiculated appearance that were removed in their entirety. The bladder exhibits severe trabeculation and cellules there were no other mucosal lesions. The patient had a 22 Norwegian 30 cc Matos balloon left in place with 30 cc in the balloon. The stones were forward for compositional analysis and the resected tumor for pathologic analysis. Closure Type: not applicable Specimen(s): other (1. Stone fragments for compositional analysis, 2. Bladder tumor for pathologic analysis.) Applied: catheter (Twenty-two Norwegian [address] 30 cc Matos catheter with 30 cc in the balloon) Estimated Blood Loss (mL): 25 Blood products transfused: none Procedure in detail: Procedure in detail: After informed consent was obtained, the patient was identified and brought to the operating room where he was placed in a supine position on the table anesthesia was induced to maintain. Ensuring an adequate level of anesthesia the patient was transitioned to the lithotomy position where he was prepped, draped, prepared for Transurethral procedure. After prepping draping time-out an ensuring an adequate level of anesthesia a 22 Norwegian cystoscope was passed through the urethra prostate and into the bladder under direct vision. Note the urethral meatus did require dilation to 30 Norwegian with Nathalie sounds prior to the cystoscope being inserted. Once within the bladder cystoscopy was performed with the 30 and 70 degree lens. The stones were identified the mechanical lithotrite was inserted and the stones broken up and then the fragments evacuated. Through these maneuvers some of the so fidgetiness varices were disrupted and Bugbee electrode was inserted and hemostasis achieved with electrocautery. Attention was then turned to the tumor which using a biopsy forceps or resecting forceps was sequentially resected. With all of the fragments of the tumor removed a Bugbee electrode was inserted and hemostasis achieved at the tumor base and margin of approximately 1 cm fulgurated around the base of the tumor. Cystoscopy is once again performed and there were a few remaining stones spicules which were removed. This point the bladder was left full hemostasis was achieved and this scope was removed. The 22 Norwegian catheter was then passed through the urethra prostate and in the bladder the balloon filled with 30 cc of sterile water and placed to gravity drainage. At this point the patient was awakened having tolerated the procedure well and transferred to the postanesthesia care unit for recovery. There were no complications Complications: none Post-operative Condition: stable Disposition: PACU Plan for aftercare: Patient to be discharged to home with a Matos catheter to follow up in my office in 10-14 days for voiding trial.
[2022-08-23] MEDS: HYDROCODONE/ACET 5/325 TABLET 1 TAB PO (09:08)
[2022-08-23] MEDS: PHENAZOPYRIDINE 100 MG TABLET 200 MG PO (09:22)
[2022-08-23] MEDS: OXYBUTYNIN 5 MG TABLET PO (09:23)
--- NOTE | 2022-08-23 10:22 | SUR.PHASEII ---
pt education on drainage and leg bag use and exchange, additional supplies provided.
[2022-08-30 21:10] LABS: Ca oxalate monohydr 20 % (.); Size 6x6 mm (.); Uric Acid 80 % (.)
== END 2022-08-23 10:27 | disposition home or self-care (01) ==
PROVIDERS: PCP Internal Medicine; Referring Provider Urology; Visit Provider Urology
PROC: 0TBB8ZZ Excision of Bladder, Via Natural or Artificial Opening Endoscopic (ICD-10-PCS; CPT 52317; principal; 2022-08-23 07:45)
DX: C67.9 Malignant neoplasm of bladder, unspecified (principal); N21.0 Calculus in bladder
CPT/HCPCS: 52317; 52234; 82365; J0330; J0690; J1100; J2405; J2704; J3010

== ENCOUNTER → 2022-09-01 13:33 | Outpatient (CLI) | payer MEDICARE, OTHER, SELFPAY | PROVIDERS: PCP Internal Medicine; Visit Provider Urology | DX: N21.0 Calculus in bladder (principal); N20.0 Calculus of kidney; R33.9 Retention of urine, unspecified; N40.1 Benign prostatic hyperplasia with lower urinary tract symptoms; N13.8 Other obstructive and reflux uropathy | CPT/HCPCS: 51702; 51798; 87086 ==

== ENCOUNTER → 2022-09-22 16:43 | Outpatient (CLI) | payer MEDICARE, OTHER, SELFPAY | PROVIDERS: PCP Internal Medicine; Visit Provider Urology | DX: N20.0 Calculus of kidney (principal); R33.9 Retention of urine, unspecified | CPT/HCPCS: 51702; 51798; 87077; 87086; 87186 ==

== ENCOUNTER → 2022-09-28 15:45 | Outpatient (CLI) | payer MEDICARE, OTHER, SELFPAY | PROVIDERS: PCP Internal Medicine; Visit Provider Urology | DX: R33.9 Retention of urine, unspecified (principal); R97.20 Elevated prostate specific antigen [PSA] | CPT/HCPCS: 52000; 87086; 99213 ==

== ENCOUNTER → 2022-10-06 08:44 | Outpatient (CLI) | payer MEDICARE, OTHER, SELFPAY ==
--- NOTE | 2022-10-06 | DI.MRI.S_ITS ---
PROCEDURE: MR PELVIS WO/W CON INDICATIONS: Elevated prostate specific antigen [PSA] TECHNIQUE: Coronal HASTE, axial T1 FSE with fat saturation, 3-plane nonbreath-hold T2 FSE. After the administration of contrast, dynamic axial, delayed axial and coronal VIBE or 2-D FLASH with fat saturation through the pelvis. Optional diffusion weighted imaging and ADC may be performed. COMPARISON: [facility], CT, CT ABDOMEN PELVIS WO/W CON, 08/12/2022, 9:22. FINDINGS: Image quality: Diffusion weighted and dynamic contrast enhanced images are diagnostic. Prostate: Gland size is 6.6 x 4.6 x 5.8 cm; ellipsoid gland volume is 92 mL. Mild linear and wedge-shaped ADC hypointensities present within the prostate peripheral zone with indistinct T2 correlates (PI-RADS 2 findings). Enlargement of the prostate transitional zone with findings typical of benign prostatic hyperplasia. No large lesion strongly stands out against background parenchymal changes of BPH on T2 weighted images (PI-RADS 2 findings). Genitourinary system: A Matos catheter is present with balloon of the catheter within the bladder lumen. The bladder is largely decompressed at the time of the exam and the small filling defect along the left posterior lateral bladder wall present on recent CT IVP is not clearly visualized. Distal ureters are non distended. Bowel and peritoneum: No substantial free pelvic fluid. Inferior colon and small bowel loops are normal in caliber. Nodes and vessels: Redemonstrated enlarged right external iliac chain medial group lymph node, approximately 1.1 cm. Iliac vessels are normal in caliber. Soft tissues: Large fat containing left inguinal hernia. Bones: Marrow demonstrates unremarkable overall signal, without lesions to suggest metastases. IMPRESSION: 1. No large or highly suspicious focal prostate lesion to direct biopsy. There is enlargement of the prostate transitional zone with findings typical of benign prostatic hyperplasia, with prostate volume estimated at 92 cc. 2. The bladder is largely decompressed at the time of the exam and the small filling defect along the left posterior lateral bladder wall present on recent CT IVP is not clearly visualized. 3. Redemonstrated mildly enlarged right external iliac chain medial group lymph node, nonspecific. Dictated by: Osbaldo Morales M.D. on 10/06/2022 at 15:50 Approved by: Osbaldo Morales M.D. on 10/06/2022 at 16:12
== END ==
PROVIDERS: PCP Internal Medicine; Referring Provider Urology; Visit Provider Urology
DX: R97.20 Elevated prostate specific antigen [PSA] (principal); R59.0 Localized enlarged lymph nodes
CPT/HCPCS: 72197; A9579

== ENCOUNTER → 2022-10-13 14:40 | Outpatient (CLI) | payer MEDICARE, OTHER, SELFPAY ==
[2022-10-13 15:51] LABS: BUN Creatinine Ratio 15.2 (6-22); Blood Urea Nitrogen 20 mg/dL (9-20); Calcium 9.5 mg/dL (8.4-10.2); Carbon Dioxide 26 mmol/L (22-32); Chloride 103 mmol/L (98-107); Estimated Glomerular Filt Rate 58 mL/min (>60); Glucose 95 mg/dL (80-110); HEMOLYSIS < 15 (0-50); Potassium 4.1 mmol/L (3.4-5.1); Sodium 138 mmol/L (137-145)
== END ==
PROVIDERS: PCP Internal Medicine; Referring Provider Urology; Visit Provider Urology
DX: N40.1 Benign prostatic hyperplasia with lower urinary tract symptoms (principal); R33.9 Retention of urine, unspecified; N13.8 Other obstructive and reflux uropathy; D49.4 Neoplasm of unspecified behavior of bladder; R93.89 Abnormal findings on diagnostic imaging of other specified body structures; R97.20 Elevated prostate specific antigen [PSA]
CPT/HCPCS: 36415; 80048; 99215

== ENCOUNTER → 2022-10-17 10:37 | Outpatient (CLI) | payer MEDICARE, OTHER, SELFPAY ==
--- NOTE | 2022-10-17 10:39 | DI.CT.S_ITS ---
PROCEDURE: CT ANGIO ABDOMEN INDICATIONS: Recommended by radiologist. Indeterminate structure posterior to the IVC on prior CT. TECHNIQUE: After the administration of intravenous contrast, 2.5 mm sections acquired from the diaphragm to the iliac crests. 10 mm maximum intensity projection (MIP) coronal and sagittal reformats were then performed. For radiation dose reduction, the following was used: automated exposure control. COMPARISON: [facility], CT, CT ABDOMEN PELVIS WO/W CON, 08/12/2022, 9:22. FINDINGS: Extravascular tissues: No pleural effusion. Few small liver cysts present as before. Gallbladder contains multiple small stones as before. Biliary system is non dilated. Similar 2.8 cm cyst at the pancreatic body (). Spleen is normal in size and enhancement. Small left adrenal adenoma similar to before. No hydronephrosis. Similar appearance of the kidneys compared to recent prior exam including a nonobstructing left renal stone and hemorrhagic/proteinaceous cyst at the left kidney posteriorly. Redemonstrated structure posterior to the IVC measuring 1.7 cm (), not significantly changed. The finding appears heterogeneously enhancing. It abuts an accessory right renal artery as described previously (for example ). Visualized large and small bowel is non-dilated. Small hiatal hernia. Tiny periumbilical hernia containing a nondilated loop of small bowel (for example ). No free fluid or air. No vertebral body compression fractures. Abdominal aorta: No aneurysm. Mesenteric arteries: Origins of the celiac axis, SMA, and SHAYY appear patent. Renal arteries: Accessory right renal artery associated with the structure posterior to the IVC as above. Two left renal arteries present. IMPRESSION: 1. No significant interval change in the small structure posterior to the IVC present on the prior exam. The finding is indeterminate. It abuts an accessory right renal artery as described previously, but is difficult to confirm as an aneurysm. An aneurysm is possible but other etiologies including an abnormal lymph node or other non-specific solid mass are also possible. Digital subtraction angiography may be helpful to confirm or exclude an aneurysm. Otherwise, could consider surveillance imaging to assess for interval change. 2. A 2.8 cm pancreatic cyst is present. No definite suspicious features identified by CT. This is a nonspecific finding, could represent a side branch IPMN but other cystic neoplasms or sequela of prior pancreatitis are not excluded. Further evaluation/surveillance is recommended, consider repeat imaging in 6 months or EUS/FNA as per ACR guidelines. Gastroenterology consultation may be helpful to direct further management. 3. Tiny periumbilical hernia containing a nondilated loop of small bowel. Dictated by: Osbaldo Morales M.D. on 10/17/2022 at 15:08 Approved by: Osbaldo Morales M.D. on 10/17/2022 at 15:37
== END ==
PROVIDERS: PCP Internal Medicine; Referring Provider Urology; Visit Provider Urology
DX: R93.89 Abnormal findings on diagnostic imaging of other specified body structures (principal); K86.2 Cyst of pancreas; K80.20 Calculus of gallbladder without cholecystitis without obstruction; D35.02 Benign neoplasm of left adrenal gland; N20.0 Calculus of kidney; N28.1 Cyst of kidney, acquired; K44.9 Diaphragmatic hernia without obstruction or gangrene
CPT/HCPCS: 74175; Q9967

== ENCOUNTER → 2022-10-24 08:35 | Outpatient (CLI) | payer MEDICARE, OTHER, SELFPAY ==
[2022-10-24 12:11] LABS: Blood Urea Nitrogen 13 mg/dL (9-20); Calcium 9.3 mg/dL (8.4-10.2); Carbon Dioxide 27 mmol/L (22-32); Chloride 98 mmol/L (98-107); Estimated Glomerular Filt Rate > 60 mL/min (>60); Glucose 91 mg/dL (80-110); HEMOLYSIS < 15 (0-50); Sodium 133 mmol/L (137-145)
== END ==
PROVIDERS: PCP Internal Medicine; Referring Provider Urology; Visit Provider Urology
DX: R79.89 Other specified abnormal findings of blood chemistry (principal)
CPT/HCPCS: 36415; 80048

== ENCOUNTER → 2022-10-25 13:51 | Outpatient (CLI) | payer MEDICARE, OTHER, SELFPAY | PROVIDERS: PCP Internal Medicine; Visit Provider Urology | DX: D49.4 Neoplasm of unspecified behavior of bladder (principal); N40.1 Benign prostatic hyperplasia with lower urinary tract symptoms; N13.8 Other obstructive and reflux uropathy; R33.9 Retention of urine, unspecified; N20.0 Calculus of kidney; N21.0 Calculus in bladder; R97.20 Elevated prostate specific antigen [PSA]; R93.89 Abnormal findings on diagnostic imaging of other specified body structures; R79.89 Other specified abnormal findings of blood chemistry; Z87.898 Personal history of other specified conditions; Z87.442 Personal history of urinary calculi | CPT/HCPCS: 51702; 87077; 87086; 87186; 99214 ==

== ENCOUNTER → 2022-11-21 08:20 | Outpatient (CLI) | payer MEDICARE, OTHER, SELFPAY | PROVIDERS: PCP Internal Medicine; Visit Provider Specialist | DX: D49.4 Neoplasm of unspecified behavior of bladder (principal); N40.1 Benign prostatic hyperplasia with lower urinary tract symptoms; N13.8 Other obstructive and reflux uropathy; N20.0 Calculus of kidney; N21.0 Calculus in bladder; R33.9 Retention of urine, unspecified | CPT/HCPCS: 51702; 87086 ==

== ENCOUNTER → 2022-12-27 09:00 | Outpatient (CLI) | payer MEDICARE, OTHER, SELFPAY | PROVIDERS: PCP Internal Medicine; Visit Provider Urology | DX: D49.4 Neoplasm of unspecified behavior of bladder (principal); N40.1 Benign prostatic hyperplasia with lower urinary tract symptoms; N13.8 Other obstructive and reflux uropathy; N20.0 Calculus of kidney; N21.0 Calculus in bladder; R33.9 Retention of urine, unspecified | CPT/HCPCS: 51702; 87077; 87086; 87186 ==

== ENCOUNTER → 2023-02-15 09:25 | Outpatient (CLI) | payer MEDICARE, OTHER, SELFPAY | PROVIDERS: PCP Internal Medicine; Visit Provider Urology | DX: R33.9 Retention of urine, unspecified (principal); D49.4 Neoplasm of unspecified behavior of bladder; N20.0 Calculus of kidney; N21.0 Calculus in bladder; N40.1 Benign prostatic hyperplasia with lower urinary tract symptoms; N13.8 Other obstructive and reflux uropathy | CPT/HCPCS: 51702; 87077; 87086; 87186 ==

== ENCOUNTER → 2023-03-08 14:27 | Outpatient (CLI) | payer MEDICARE, OTHER, SELFPAY ==
[2023-03-08 15:29] LABS: Hematocrit 42.9 % (41-53); Hemoglobin 15.1 g/dL (13.5-17.5); Mean Corpuscular HGB Conc 35.2 % (30-36); Mean Corpuscular Hemoglobin 33.2 PG (26-34); Mean Corpuscular Volume 94.4 fL (80-100); Platelet Count 226 X10^3/uL (150-400); Red Blood Cell Count 4.54 X10^6/uL (4.5-5.9); Red Cell Distribution Width 13.4 % (11.6-14.8); White Blood Cell Count 7.3 X10^3/uL (4.5-11.0)
[2023-03-08 15:46] LABS: Alanine Aminotransferase 32 IU/L (<50); Albumin 4.3 g/dL (3.5-5.0); Albumin Globulin Ratio 1.4 (1.0-2.8); Alkaline Phosphatase 69 U/L (38-126); Aspartate Aminotransferase 30 IU/L (17-59); BUN Creatinine Ratio 14.4 (6-22); Bilirubin Total 0.6 mg/dL (0.2-1.3); Blood Urea Nitrogen 16 mg/dL (9-20); Calcium 9.8 mg/dL (8.4-10.2); Carbon Dioxide 24 mmol/L (22-32); Chloride 102 mmol/L (98-107); Cholesterol 164 mg/dL (140-199); Estimated Glomerular Filt Rate > 60 mL/min (>60); Glucose 105 mg/dL (80-110); HDL Cholesterol 32 mg/dL (40-60); HEMOLYSIS < 15 (0-50); LDL Cholesterol Calculated 58 mg/dL (<100); Sodium 136 mmol/L (137-145); Total Protein 7.3 g/dL (6.3-8.2); Triglycerides 371 mg/dL (35-150)
[2023-03-08 16:15] LABS: Prostate Specific Antigen 2.78 ng/mL (0.10-4.00)
== END ==
PROVIDERS: PCP Internal Medicine; Referring Provider Internal Medicine; Visit Provider Internal Medicine
DX: R97.20 Elevated prostate specific antigen [PSA] (principal); E78.2 Mixed hyperlipidemia; I10 Essential (primary) hypertension
CPT/HCPCS: 36415; 80053; 80061; 84153; 85027

== ENCOUNTER → 2023-03-16 08:32 | Outpatient (CLI) | payer MEDICARE, OTHER, SELFPAY | PROVIDERS: PCP Internal Medicine; Visit Provider Urology | DX: R33.9 Retention of urine, unspecified (principal); C67.9 Malignant neoplasm of bladder, unspecified; N40.1 Benign prostatic hyperplasia with lower urinary tract symptoms; N13.8 Other obstructive and reflux uropathy; R97.20 Elevated prostate specific antigen [PSA]; Z87.442 Personal history of urinary calculi | CPT/HCPCS: 51702; 87077; 87086; 87186; 99215 ==

== ENCOUNTER → 2023-04-04 09:25 | Outpatient (CLI) | payer MEDICARE, OTHER, SELFPAY | PROVIDERS: PCP Internal Medicine; Visit Provider Urology | DX: R33.9 Retention of urine, unspecified (principal) | CPT/HCPCS: 87077; 87086; 99211 ==

== ENCOUNTER → 2023-05-24 08:16 | Outpatient (CLI) | payer MEDICARE, OTHER, SELFPAY ==
--- NOTE | 2023-05-24 08:19 | DI.CT.S_ITS ---
PROCEDURE: CT ABDOMEN PELVIS WO/W CON INDICATIONS: Follow-up bladder cancer, pancreatic cyst TECHNIQUE: Optional 5 mm thick noncontrast images acquired from the diaphragm to the symphysis pubis. After the administration of intravenous contrast, 5 mm thick images acquired from the diaphragm to the symphysis pubis after a 10-minute delay. 2 mm thick coronal and sagittal reformats were then performed of the kidneys and ureters. For radiation dose reduction, the following was used: automated exposure control, adjustment of mA and/or kV according to patient size. COMPARISON: [facility], CT, CT ANGIO ABDOMEN, 05/24/2023, 9:05. [facility], CT, CT ABDOMEN PELVIS WO/W CON, 08/12/2022, 9:22. FINDINGS: Image quality: Diagnostic. Kidneys and Ureters: Both kidneys are normal in size, without hydronephrosis. 2 x 1 cm nonobstructing left-sided nephrolithiasis (6093 Hounsfield unit). Additional punctate, nonobstructing stone in the right renal collecting system. Partial right nephrectomy versus junctional cortical defect. No perinephric fat stranding. There is normal bilateral renal enhancement. Renal calyces appear normal in morphology when filled with contrast. Opacified portions of both ureters demonstrate normal caliber. Hepatic cysts, with homogeneous attenuation, and without internal complexity. This includes a hemorrhagic cyst on the medial margin of the left kidney measuring 2.6 cm. Bladder: Bladder wall thickness is normal. No calcified bladder stones. Resolved polypoidal lesion along the lateral margin of the bladder wall. OTHER: Lower chest: Unremarkable. Liver: No solid mass. Gallbladder: Cholelithiasis without wall thickening or adjacent fat stranding to suggest acute cholecystitis. Biliary ducts: No biliary dilation. Pancreas: No ductal dilation. Stable 2.7 cm cystic lesion in the tail of the pancreas (series 3, image 30). Spleen: Size is within normal limits. Adrenal Glands: Benign 1.3 cm left adrenal adenoma by Hounsfield units criteria (series 3, image 27). Stomach and Bowel: Normal colonic caliber, without significant wall thickening. Colonic diverticulosis without evidence of diverticulitis. Peritoneum: No abnormal intraperitoneal fluid. No free air. Ventral Wall: No hernia. Abdominal Nodes: Stable retroperitoneal lesion measuring 1.5 cm (series 3, image 38). Vessels: Aorta and inferior vena cava are normal in size. PELVIS: Pelvic Organs: Unremarkable. Pelvic Nodes: 1.0 cm right obturator chain node, previously 1.4 cm (series 5, image 178). Miscellaneous: Moderate left inguinal hernia containing fat.. Bones: No aggressive osseous abnormality. L3 hemangioma. IMPRESSION: Resolved left lateral bladder wall mass. No additional suspicious filling defects within the opacified renal collecting system or ureters. Small burden of bilateral nonobstructing nephrolithiasis, largest measuring 2 cm in the left kidney. Interval decrease in size of the right obturator chain node measuring 1.0 cm, previously 1.4 cm. Stable retroperitoneal lesion adjacent to the right renal vasculature measuring 1.5 cm. Stable pancreatic cystic lesion. Recommend GI referral for management, given size. Other chronic findings as above. Dictated by: Rodrigue Edmonds M.D. on 05/24/2023 at 9:51 Approved by: Rodrigue Edmonds M.D. on 05/24/2023 at 10:27
[2023-05-24 08:46] LABS: Estimated Glomerular Filt Rate > 60 mL/min (>60)
--- NOTE | 2023-05-24 09:03 | DI.CT.S_ITS ---
PROCEDURE: CT ANGIO ABDOMEN INDICATIONS: Follow-up indeterminate structure question renal artery aneurysm TECHNIQUE: After the administration of intravenous contrast, 2.5 mm sections acquired from the diaphragm to the iliac crests. 10 mm maximum intensity projection (MIP) coronal and sagittal reformats were then performed. For radiation dose reduction, the following was used: automated exposure control. COMPARISON: [facility], CT, CT ABDOMEN PELVIS WO/W CON, 08/12/2022, 9:22. [facility], CT, CT ANGIO ABDOMEN, 10/17/2022, 10:56. FINDINGS: Image quality: Diagnostic. Abdominal aorta: Normal caliber. Mesenteric arteries: Patent without hemodynamically significant stenosis. Renal arteries: There are 2 right renal arteries. There is a spherical structure which enhance is immediately adjacent to the accessory right renal artery, which is unchanged in size, measuring approximately 1.5 cm. It is more likely not a saccular aneurysm off the accessory right renal artery. However, a saccular aneurysm is not excluded. Again, it is unchanged in size. Lower chest: Unremarkable. ABDOMEN: Liver: No solid mass. Mild diffuse hepatic steatosis. Gallbladder: Multiple vaguely calcified gallstones. No gallbladder wall thickening. Biliary ducts: No biliary dilation. Pancreas: No ductal dilation. Spleen: Size is within normal limits. Adrenal Glands: No adrenal nodules. Kidneys and Ureters: No hydronephrosis. No solid mass. Chronic focal cortical loss, anterior right kidney, consistent with remote insult. No complex renal cystic lesion which requires follow up. Unchanged 2.4 cm hyperdense cyst, lower pole of left kidney. Known left middle pole renal stone, nonobstructive, measuring 1.2 x 2.0 cm. Stomach and Bowel: Normal colonic caliber, without significant wall thickening. Diverticulosis without evidence of diverticulitis. Peritoneum: No abnormal intraperitoneal fluid. No free air. Ventral Wall: No hernia. Abdominal Nodes: No retroperitoneal or mesenteric adenopathy by size criteria. Vessels: Aorta, as above. Normal IVC. PELVIS: Pelvic Organs: Unremarkable. Bladder: Unremarkable. Pelvic Nodes: No enlarged lymph nodes. Miscellaneous: No inguinal hernias are seen. Bones: No aggressive osseous abnormality. Lumbar degenerative change. There is severe canal stenosis at L4-L5, in part secondary to disc protrusion and facet and ligament hypertrophy. IMPRESSION: 1. There is an enhancing structure posterior to the inferior vena cava immediately adjacent to an accessory right renal artery. It is more likely not a saccular aneurysm off the accessory renal artery. However, cannot exclude a saccular aneurysm. It is stable, measuring approximately 1.5 cm. 2. Focal right renal cortical volume loss. This is consistent with remote insult. 3. Large nonobstructing left renal stone. 4. Severe canal stenosis at L4-L5. 5. Diverticulosis. 6. Cholelithiasis. Comment: Consider diagnostic angiography to determine whether not the spherical enhancing lesion is a saccular aneurysm. If it turns out to be a saccular aneurysm, it would likely be possible to embolize this a lesion. Alternatively, the it can simply be followed with yearly CT to document stability. This could be performed without contrast. Dictated by: Woody Johnston M.D. on 05/24/2023 at 12:40 Approved by: Woody Johnston M.D. on 05/24/2023 at 13:34
== END ==
PROVIDERS: Radiology Diagnostic Radiology; PCP Internal Medicine; Referring Provider Urology; Visit Provider Urology
DX: C67.9 Malignant neoplasm of bladder, unspecified (principal); R93.89 Abnormal findings on diagnostic imaging of other specified body structures; N20.0 Calculus of kidney; K86.2 Cyst of pancreas; D35.02 Benign neoplasm of left adrenal gland; K40.90 Unilateral inguinal hernia, without obstruction or gangrene, not specified as recurrent; K57.90 Diverticulosis of intestine, part unspecified, without perforation or abscess without bleeding; K66.9 Disorder of peritoneum, unspecified; Z87.442 Personal history of urinary calculi
CPT/HCPCS: 36415; 74175; 74178; 82565

== ENCOUNTER → 2023-06-29 13:59 | Outpatient (CLI) | payer MEDICARE, OTHER, SELFPAY ==
--- NOTE | 2023-06-29 14:03 | DI.RAD.S_ITS ---
PROCEDURE: XR KUB INDICATIONS: Left renal calculus TECHNIQUE: One view of the abdomen acquired. COMPARISON: [facility], CT, CT ABDOMEN PELVIS WO/W CON, 05/24/2023, 9:05. FINDINGS: Surgical changes and devices: None. Bowel: Bowel gas pattern is nonobstructive. Mild fecal stasis throughout the colon is seen. Soft tissues: There is a 1.6 x 1.4 cm calcification seen projecting in the region of left renal fossa which may represent CT finding of stone in this area. No other abnormal calcifications are seen. Visualized solid organ contours appear normal in size. Bones: No suspicious bony lesions. IMPRESSION: Suggestion of a 1.6 x 1.4 cm left-sided renal stone which was also seen on previous CT study. Dictated by: Allan Peters M.D. on 06/29/2023 at 16:16 Approved by: Allan Peters M.D. on 06/29/2023 at 16:18
== END ==
PROVIDERS: PCP Internal Medicine; Referring Provider Urology; Visit Provider Urology
DX: Z87.442 Personal history of urinary calculi (principal); Z09 Encounter for follow-up examination after completed treatment for conditions other than malignant neoplasm
CPT/HCPCS: 74018

== ENCOUNTER 2023-08-08 07:53 | Day surgery (SDC) | payer MEDICARE, OTHER, SELFPAY ==
[2023-08-03 10:43] VITALS: BMI 33.3
[2023-08-08] VITALS (7 sets, daily range): BP systolic 104–162; BP diastolic 78–85; PULSE 58–67; RESP 13–21; TEMP 36–36.7; O2SAT 92–96; BMI 33.3
[2023-08-08] MEDS: LACTATED RINGERS 1,000 ML 21 ML IV (08:19)
--- NOTE | 2023-08-08 08:59 | PM.PREOP ---
Pre-operative Note COVID-19 COVID-19 status: Not tested Interval Note History & Physical reviewed/Exam performed by Physician: Yes Changes to H&P: No
[2023-08-08] MEDS: CEFAZOLIN 2 GM/100 ML PREMIX 100 ML IV (09:38)
--- NOTE | 2023-08-08 09:58 | SUR.OPER ---
Lithotomy on padded OR bed, head on pillow, arms secured on padded arm boards at <90 degrees abduction. Legs secured in padded yellow fins stirrups.
--- NOTE | 2023-08-08 11:23 | PM.OP.1 ---
Procedure & Clinicians Procedure: Left extracorporeal shockwave lithotripsy with cystoscopy rigid and flexible for placement of left ureteral stent. Same procedure as scheduled: Yes Indications: This 72-year-old male with known left-sided stone presents at this time for the above procedure. Patient had other more pressing urologic concerns which have now been dealt with and he presents this time for treatment of his stone. Surgeon: Lavon Lion Click Yes if Unassisted: Yes Anesthesia Type: General Operative Notes Findings: Findings: Urethral meatus and urethra normal with normal mucosa. The prostate shows severe obstructive character with bulging into the bladder and a somewhat bifid median lobe perhaps from previous resection. Patient had scar with in his bladder but no evidence of recurrent bladder tumor. 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 The right ureteral orifices in normal position with clear efflux. The left ureteral orifices had a some degree of J hooking and it was challenging to access as will be noted in the operative note. In any regard was able to place a 7 [place] by multi length ureteral stent without a string in the left collecting system. The stone received 2500 shocks at level 7 and appeared to fragment well. There were no other abnormalities. Closure Type: not applicable Specimen(s): none sent Prosthetic devices, grafts, tissues, transplants, or devices: Seven [place] by multi length ureteral stent left collecting system without a string. Estimated Blood Loss (mL): 0 Blood products transfused: none Procedure in detail: Procedure in detail: After informed consent was obtained the patient was identified and brought to the operating room where he was placed in a supine position on the Lithotripter. Once there he had anesthesia induced and maintained. Ensuring an adequate level of anesthesia the patient was transitioned to the lithotomy position where he was prepped, draped, prepared for Transurethral procedure. After prepping, draping, time-out, ensuring an adequate level of anesthesia and administration of antibiotics a 22 [place] cystoscope was passed through the urethra prostate and into the bladder where cystoscopy was performed. The left ureteral orifices was identified and attempts were made with a straight wire and angled wire, straight and angled wire with a Marty catheter, Albarans bridge all to no avail due to the angle of the ureteral orifice. At this point the rigid scope was removed and a flexible scope was inserted in the ureteral orifice accessed with the guidewire which was passed up into the collecting system under fluoroscopic visualization. It was say the least this was challenging. With the wire in place the flexible scope was backed out the wire was left in place and the rigid scope passed over the wire and into the bladder. Once there the stent was passed over the wire positioned in the renal pelvis under fluoroscopic visualization in the bladder under direct vision. The nylon harness was removed. The bladder was drained and the scope was removed leaving the stent in good position. The stone was then targeted via the imaging system and shockwave was delivered at level 7 for a total of 2500 shocks. There was periodic reimaging and re localization to ensure maximal energy delivery to the stone. After administration of 2500 shocks the shockwave head was rotated out and fluoroscopy performed revealing the stone to have been well fragmented. At this point the patient was awakened transferred to the postanesthesia care unit for recovery. There were no complications Complications: none Post-operative Condition: stable Disposition: PACU Plan for aftercare: After the patient has recovered he will be discharged to home straining his urine saving any fragments to bring to follow-up.
[2023-08-08] MEDS: PHENAZOPYRIDINE 100 MG TABLET 200 MG PO (11:45)
[2023-08-08] MEDS: OXYBUTYNIN 5 MG TABLET PO (11:45)
== END 2023-08-08 12:30 | disposition home or self-care (01) ==
PROVIDERS: PCP Internal Medicine; Referring Provider Urology; Visit Provider Urology
PROC: (CPT 50590; principal; 2023-08-08 09:15)
DX: N20.0 Calculus of kidney (principal)
CPT/HCPCS: 50590; 52332; J0690; J1100; J2250; J2405; J2704; J3010

== ENCOUNTER → 2023-08-11 09:14 | Outpatient (CLI) | payer MEDICARE, OTHER, SELFPAY ==
[2023-08-11 11:11] LABS: Appearance Urine UA CLEAR; Bilirubin Urine UA NEGATIVE (NEGATIVE); Color Urine UA YELLOW; Glucose Urine UA NEGATIVE (Negative); Ketones Urine UA NEGATIVE (NEGATIVE); Leukocyte Esterase Urine UA 2+ (NEGATIVE); Nitrite Urine UA POSITIVE (Negative); Occult Blood Urine UA 3+ (Negative); Protein Urine UA 2+ (Negative); Specific Gravity Urine UA 1.015 (1.000-1.035)
[2023-08-11 11:34] LABS: Urine Volume 10mL (spun)
[2023-08-11 11:35] LABS: Bacteria Urine None Seen; Culture Indicated Urine Cult Not Indicated; RBC Urine >100/HPF (0-5/HPF); Squamous Epithelial Cell Urine None Seen (0-5/HPF); WBC Urine >100/HPF (0-5/HPF)
== END ==
PROVIDERS: PCP Internal Medicine; Referring Provider Urology; Visit Provider Urology
DX: N39.0 Urinary tract infection, site not specified (principal)
CPT/HCPCS: 81001; 87086

== ENCOUNTER 2023-08-13 16:49 | Emergency (ER) | payer MEDICARE, OTHER, SELFPAY ==
[2023-08-13] VITALS (12 sets, daily range): BP systolic 148–177; BP diastolic 77–93; PULSE 82–98; RESP 12–23; TEMP 36.7–37.3; O2SAT 90–97; BMI 33.3
[2023-08-13 17:30] LABS: Add Manual Diff / Slide Review NO; Basophils Absolute Auto 100 /uL (0-100); Basophils Percent Auto 0.4 % (0-2); Eosinophils Absolute Auto 100 /uL (0-450); Eosinophils Percent Auto 0.4 % (2-4); Hematocrit 47.9 % (41-53); Hemoglobin 16.4 g/dL (13.5-17.5); Lymphocytes Absolute Auto 500 /uL (1100-4500); Lymphocytes Percent Auto 3.7 % (25-40); Mean Corpuscular HGB Conc 34.3 % (30-36); Mean Corpuscular Hemoglobin 33.6 PG (26-34); Mean Corpuscular Volume 98.1 fL (80-100); Monocytes Absolute Auto 800 /uL (0-900); Monocytes Percent Auto 5.3 % (3-14); Neutrophils Absolute Auto 12800 /uL (1500-7000); Neutrophils Percent Auto 90.2 % (50-75); Platelet Count 221 X10^3/uL (150-400); Red Blood Cell Count 4.88 X10^6/uL (4.5-5.9); Red Cell Distribution Width 13.1 % (11.6-14.8); White Blood Cell Count 14.2 X10^3/uL (4.5-11.0)
[2023-08-13 17:37] LABS: INR 1.1 (0.9-1.3); Prothrombin Time 12.2 SECONDS (9.4-12.5)
[2023-08-13 17:41] LABS: Lactate (Lactic Acid) 1.7 mmol/L (0.7-2.1)
[2023-08-13 17:43] LABS: Alanine Aminotransferase 26 IU/L (<50); Albumin Globulin Ratio 1.7 (1.0-2.8); Alkaline Phosphatase 91 U/L (38-126); Aspartate Aminotransferase 27 IU/L (17-59); BUN Creatinine Ratio 17.4 (6-22); Bilirubin Total 1.5 mg/dL (0.2-1.3); Blood Urea Nitrogen 20 mg/dL (9-20); Carbon Dioxide 25 mmol/L (22-32); Chloride 99 mmol/L (98-107); Estimated Glomerular Filt Rate > 60 mL/min (>60); Glucose 151 mg/dL (80-110); HEMOLYSIS 20 (0-50); Lipase 80 U/L (23-300); Potassium 3.4 mmol/L (3.4-5.1); Sodium 135 mmol/L (137-145)
[2023-08-13 17:59] LABS: Procalcitonin 0.05 ng/mL (<0.5)
--- NOTE | 2023-08-13 17:59 | ED.MALEGU ---
HPI - Male Genitourinary General Chief complaint: Urogenital-Male Stated complaint: post kidney stone surg/states infection Time Seen by Provider: 08/13/23 17:52 Source: patient Mode of arrival: Ambulatory History of Present Illness HPI Narrative: 72yoM wit PMH kidney stones presents for evaluation of L flank pain. Patient underwent lithotripsy on 08/08/[address] Lion with stent placement. Patient was started on cipro postoperatively. Patient states that this evening he began to have worsening flank pain and was concerned that he may have an infection. Reports low-grade fever 99.4 at home. Related Data Home Medications Medication Instructions Recorded Confirmed ascorbate calcium (vitamin C) 500 500 mg PO DAILY 09/03/21 08/08/23 mg tablet flaxseed oil 1,000 mg capsule 1,000 mg PO DAILY 09/03/21 08/08/23 multivitamin 1 tab PO DAILY 09/03/21 08/03/23 omeprazole 20 mg tablet,delayed 20 mg PO DAILY 09/03/21 08/08/23 release saw palmetto 160 mg capsule 320 mg PO DAILY 09/03/21 08/08/23 olmesartan 40 mg tablet 40 mg PO DAILY 03/08/23 08/08/23 Previous Rx's Medication Instructions Recorded allopurinol 300 mg tablet 300 mg PO DAILY #90 tabs 09/12/22 amlodipine 10 mg tablet 10 mg PO DAILY #90 tabs 09/12/22 atorvastatin 20 mg tablet 20 mg PO QPM #90 tabs 09/12/22 triamterene 37.5 1 cap PO DAILY #90 caps 09/12/22 mg-hydrochlorothiazide 25 mg capsule finasteride 5 mg tablet 5 mg PO DAILY #30 tabs 09/22/22 tamsulosin 0.4 mg capsule 0.8 mg (2 x 0.4 mg) PO DAILY #60 08/03/23 caps phenazopyridine 200 mg tablet 200 mg PO TID PRN Bladder 08/08/23 (Pyridium) irritation #15 tabs oxybutynin chloride 5 mg tablet 5 mg PO .COMPLEX PRN for bladder 08/10/23 muscle dysfunction #30 tabs ciprofloxacin HCl 500 mg tablet 500 mg PO BID #10 tabs 08/11/23 hydrocodone 5 mg-acetaminophen 325 1 tab PO Q8H PRN pain #7 tabs 08/13/23 mg tablet Allergies Allergy/AdvReac Type Severity Reaction Status Date / Time Iodinated Contrast Media Allergy Unknown Verified 08/13/23 17:09 Review of Systems Review of Systems Narrative: see HPI Patient History Medical History Kidney stone on left side Pancreatic cyst UTI (urinary tract infection) Venous (peripheral) insufficiency Chronic low back pain with bilateral sciatica Urinary retention Bladder cancer Bladder calculi Incomplete emptying of bladder History of gross hematuria History of kidney stones Allergic rhinitis Obesity (BMI 30.0-34.9) Elevated PSA BPH w urinary obs/LUTS GERD without esophagitis Primary osteoarthritis involving multiple joints Mixed hyperlipidemia Essential hypertension Allergies (~1969) Gout (~2020) Chronic back pain (~2009) Mumps (~1959) Measles (~1959) Chicken pox (~1959) Barretts esophagus (~2004) Urinary hesitancy No significant medical problems Surgical History H/O transurethral resection of bladder tumor (TURBT) (08/23/22) Anesthesia History of lithotripsy (~1999) History of lithotripsy (~1993) Family History Father History of heart disease Mother History of heart disease Brother Brain tumor Grandfather History of heart disease Grandmother History of heart disease Grandmother Stroke Social History marital status: details: (Carola), scientific consulting/physics/safety number of children: 4 household members: spouse Smoking Status: Never smoker alcohol intake: current caffeine: Yes Type(s) of exercise: other frequency: daily Smoking Status: Never smoker alcohol intake frequency: 0-2 drinks per day Alcohol type: wine Substance Use Type: does not use Exam Initial Vital Signs Initial Vital Signs: Vital Signs Temperature 99.2 F 08/13/23 16:53 Pulse Rate 94 H 08/13/23 16:53 Respiratory Rate 16 08/13/23 16:53 Blood Pressure 174/92 H 08/13/23 16:53 Pulse Oximetry 97 08/13/23 16:53 Oxygen Delivery Method Room Air 08/13/23 16:53 Const: Awake, alert, no acute distress, nontoxic appearing Cardiac: regular rate, regular rhythm RESP: unlabored, clear bilaterally, no wheezing GI: Soft, nontender, nondistended, no rebound, no guarding MSK: Atraumatic, full range of motion, pulses equal Skin: Warm, Dry, intact, no rashes Neuro: AO x3, CN II-XII grossly intact, moves all extremities Course Orders Ordered: ED Orders 08/13/23 17:22 Complete Blood Count AUTO DIFF Stat Comprehensive Metabolic Panel Stat Lactate (Lactic Acid) Stat Lipase Stat Procalcitonin Stat Prothrombin Time INR Stat 08/13/23 17:25 EKG-12 Lead Stat 08/13/23 17:40 Blood Culture Stat 08/13/23 17:58 CT abdomen pelvis w con Stat 08/13/23 18:43 UA dip [Urinalysis Screen (Dip Only)] Stat Urine Microscopic Stat Discontinued Medications Hydrocodone Bitart/Acetaminophen (Hydrocodone/Acet 5/325 Prepack) 1 bottle MISC DIRECTED ONE Stop: 08/13/23 20:42 Last Admin: 08/13/23 20:56 Dose: 1 bottle Documented By: DUSTY Diphenhydramine HCl (Diphenhydramine 50 Mg/Ml Vial) 50 mg IV NOW ONE Stop: 08/13/23 18:06 Last Admin: 08/13/23 18:15 Dose: 50 mg Documented By: DUSTY Ketorolac Tromethamine (Ketorolac 30 Mg/Ml Vial) 15 mg IV NOW ONE Stop: 08/13/23 18:06 Last Admin: 08/13/23 18:14 Dose: 15 mg Documented By: DUSTY Ketorolac Tromethamine (Ketorolac 30 Mg/Ml Vial) 15 mg IV NOW ONE Stop: 08/13/23 20:07 Last Admin: 08/13/23 20:13 Dose: Not Given Documented By: AB Methylprednisolone (Methylprednisolone 125 Mg/2 Ml Vial) 125 mg IV NOW ONE Stop: 08/13/23 18:06 Last Admin: 08/13/23 18:15 Dose: 125 mg Documented By: SB Morphine Sulfate (Morphine 4 Mg/Ml Inj) 4 mg IV NOW ONE Stop: 08/13/23 20:13 Last Admin: 08/13/23 20:17 Dose: 4 mg Documented By: Ondansetron HCl (Ondansetron 4 Mg Odt) 4 mg PO NOW PRN PRN Reason: Nausea And Vomiting Ondansetron HCl (Ondansetron 4 Mg/2 Ml Inj) 4 mg IV NOW PRN PRN Reason: Nausea And Vomiting Last Admin: 08/13/23 18:25 Dose: 4 mg Documented By: Admin: 08/13/23 18:15 Dose: 4 mg Documented By: DUSTY Vital Signs Vital signs: Vital Signs - 8 hr 08/13/23 17:30 08/13/23 17:30 08/13/23 18:00 Temperature Pulse Rate 82 87 Respiratory Rate 16 12 Blood Pressure 171/91 H Pulse Oximetry 96 94 Oxygen Delivery Method Room Air 08/13/23 18:00 08/13/23 18:30 08/13/23 18:30 Temperature Pulse Rate 98 H Respiratory Rate 19 Blood Pressure 167/89 H 173/93 H Pulse Oximetry 94 Oxygen Delivery Method 08/13/23 19:00 08/13/23 19:01 08/13/23 19:01 Temperature Pulse Rate 90 88 Respiratory Rate 23 19 Blood Pressure 165/79 H Pulse Oximetry 92 92 Oxygen Delivery Method Room Air 08/13/23 19:30 08/13/23 19:30 08/13/23 20:00 Temperature 98.1 F Pulse Rate 85 Respiratory Rate 20 Blood Pressure 148/77 H 176/86 H Pulse Oximetry 92 Oxygen Delivery Method Room Air 08/13/23 20:00 08/13/23 20:30 08/13/23 20:30 Temperature Pulse Rate 87 82 Respiratory Rate 20 17 Blood Pressure 154/78 H Pulse Oximetry 93 90 L Oxygen Delivery Method 08/13/23 21:00 08/13/23 21:00 Temperature 98.4 F Pulse Rate 85 Respiratory Rate 16 Blood Pressure 158/82 H Pulse Oximetry 93 Oxygen Delivery Method Room Air MDM - Male Genitourinary Differential Diagnosis Differential diagnosis: Likely urinary tract infection, priapism and urethritis Lab Data 08/13/23 17:22 08/13/23 17:22 Labs: Lab Results 08/13/23 08/13/23 Range/Units 17:22 18:43 WBC 14.2 H (4.5-11.0) X10^3/uL RBC 4.88 (4.5-5.9) X10^6/uL Hgb 16.4 (13.5-17.5) g/dL Hct 47.9 (41-53) % MCV 98.1 (80-100) fL MCH 33.6 (26-34) PG MCHC 34.3 (30-36) % RDW 13.1 (11.6-14.8) % Plt Count 221 (150-400) X10^3/uL Neut % (Auto) 90.2 H (50-75) % Lymph % (Auto) 3.7 L (25-40) % [place] % (Auto) 5.3 (3-14) % Eos % (Auto) 0.4 L (2-4) % Baso % (Auto) 0.4 (0-2) % Neut # (Auto) 63150 H (5017-9157) /uL Lymph # (Auto) 500 L (2631-0088) /uL [place] # (Auto) 800 (0-900) /uL Eos # (Auto) 100 (0-450) /uL Baso # (Auto) 100 (0-100) /uL PT 12.2 (9.4-12.5) SECONDS INR 1.1 (0.9-1.3) Sodium 135 L (137-145) mmol/L Potassium 3.4 (3.4-5.1) mmol/L Chloride 99 (98-107) mmol/L Carbon Dioxide 25 (22-32) mmol/L BUN 20 (9-20) mg/dL Creatinine 1.15 (0.66-1.25) mg/dL Estimated GFR > 60 (>60) mL/min BUN/Creatinine Ratio 17.4 (6-22) Glucose 151 H (80-110) mg/dL Lactate 1.7 (0.7-2.1) mmol/L Calcium 10.0 (8.4-10.2) mg/dL Total Bilirubin 1.5 H (0.2-1.3) mg/dL AST 27 (17-59) IU/L ALT 26 (<50) IU/L Alkaline Phosphatase 91 (38-126) U/L Total Protein 8.0 (6.3-8.2) g/dL Albumin 5.0 (3.5-5.0) g/dL Globulin 3.0 (1.7-4.1) g/dL Albumin/Globulin Ratio 1.7 (1.0-2.8) Lipase 80 (23-300) U/L Procalcitonin 0.05 (<0.5) ng/mL Urine Color [place] Urine Appearance Clear Urine pH 6.0 (4.5-8.0) Ur Specific [place] 1.015 (1.000-1.035) Urine Protein TNP Urine Glucose (UA) Negative (Negative) g/dL Urine Ketones TNP Urine Occult Blood 2+ H (Negative) Urine Nitrate TNP Urine Bilirubin TNP Urine Urobilinogen TNP Ur Leukocyte Esterase TNP Urine RBC 1-5/hpf D (0-5/HPF) Urine WBC 1-5/hpf (0-5/HPF) Ur Squamous Epith Cells 0-1 /hpf (0-5/HPF) Urine Bacteria Occasional (0-1) (None) Urine Mucus 1+ H (Negative) Ur Culture Indicated? Cult not indicated Vol Urine Centrifuged 10ml (spun) Imaging Data CT scan - abdomen/pelvis: Radiologist's Impression: PROCEDURE: CT ABDOMEN PELVIS W CON INDICATIONS: WORSENING L FLANK PAIN S/P URO STENT PLACEMENT TECHNIQUE: After the administration of intravenous contrast, axial sections acquired from the lung bases to the pubic symphysis. Coronal and sagittal reformats were performed. For radiation dose reduction, the following was used: automated exposure control, adjustment of mA and/or kV according to patient size. COMPARISON: [facility], CT, CT ABDOMEN PELVIS WO/W CON, 05/24/2023, 9:05. FINDINGS: Image quality: Diagnostic. Lower Chest: Bibasilar atelectasis. Small hiatal hernia. ABDOMEN: Liver: No solid mass. Multiple hepatic cysts redemonstrated. Gallbladder: Cholelithiasis without CT evidence for acute cholecystitis. Biliary ducts: No biliary dilation. Pancreas: No ductal dilation. Stable pancreatic tail cystic lesion measuring 2.7 cm in size. No pancreatic ductal dilatation. No peripancreatic inflammation. Spleen: Size is within normal limits. Adrenal Glands: No right adrenal nodule. 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 Kidneys and Ureters: Stable cortical scarring of the right kidney. Multiple renal hypodensities on the right likely representing cysts. These are not significantly changed. Right ureter is normal in course and caliber. No right ureteral stone. On the left, previously seen large renal stones are no longer visualized and compatible with reported history of interval lithotripsy. Small fragments of renal stones are visualized in the left kidney. Largest measures approximately 0.6 x 0.3 cm in size measuring approximately 200 Hounsfield units. There is a a left double-J ureteral stent in place small calcific fragments in the urinary bladder likely representing residual fragments of urolith. There is moderate left hydronephrosis with perinephric stranding. Mild hydroureter of the proximal left ureter. Stomach and Bowel: Normal colonic caliber, without significant wall thickening. Scattered colonic diverticula without acute inflammation. Peritoneum: No abnormal intraperitoneal fluid. No free air. Ventral Wall: No significant ventral hernia. Abdominal Nodes: Stable 1.4 cm right retroperitoneal lymph node (82/series 5). No new retroperitoneal or mesenteric adenopathy by size criteria. Vessels: Scattered atherosclerotic calcifications of the abdominal aorta and iliac vessels without aneurysmal dilatation. The inferior vena cava appears patent. PELVIS: Pelvic Organs: Prostate gland appears prominent. Bladder: Urinary bladder is partially decompressed. There is suggestion of the anterolateral left urinary bladder wall herniating through previously seen fat containing left inguinal hernia. No significant stranding seen. Pelvic Nodes: No enlarged lymph nodes. 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 Miscellaneous: No right inguinal hernia. Left inguinal hernia as described above. Bones: Visualized osseous structures appear intact without acute fracture or focal destructive lesion. No acute compression fractures of the imaged spine. IMPRESSION: 1. Status post placement of left double-J ureteral stent and findings likely related to interval lithotripsy. A few residual fragments of previously described large left renal stones. There is moderate left hydronephrosis and perinephric stranding. Mild left ureteral stranding and hydroureter. Small fragments of urolith noted in the partially decompressed urinary bladder which appears to be partially herniated in previously seen fat containing left inguinal hernia. No acute inflammatory changes. 2. Urinary bladder is not well evaluated secondary to decompressed state and lack of significant excreted contrast within the bladder. 3. Other chronic findings as described above. Dictated by: Kelton Edouard M.D. on 08/13/2023 at 19:26 Approved by: Kelton Edouard M.D. on 08/13/2023 at 19:40 MDM Narrative Medical decision making narrative: Patient with postoperative left flank pain. Recent stent placement after lithotripsy. Hemodynamically stable, no acute distress. We will order labs and CT imaging. Laboratory work significant for WBC count 14.2, hemoglobin 16.4, platelets 221. Sodium 135, potassium 3.4, creatinine 1.15 (baseline). Patient is currently on a ?chlorine tab? that colors his urine, and so sample was not able to be obtained, however 2 days ago he did have a urine sample that had multiple RBCs, nitrates, leukocyte esterase present, and multiple WBCs, however no growth was seen on bacterial culture. CT of the abdomen and pelvis shows left-sided hydronephrosis and some perinephric stranding. Call placed to Dr. Lion who performed the patient's lithotripsy. Findings reviewed with Dr. Lion via cell phone, he states that this is likely post procedural ureteral spasm and since the patient has normal creatinine, is tolerating p.o., and hemodynamically stable he can follow up in the office. He states that his office will reach out to the patient tomorrow to schedule an appropriate follow up appointment. He also recommends that patient apply heat as needed for pain and to continue to use 0.8 mg of Flomax daily. Patient and informed of all lab and imaging findings at bedside. They state that they have Flomax at home and will use heat. Pain medication sent to pharmacy of choice and prepack sent home with the patient for tonight since pharmacies are closed. Counseled to call the office if they did not receive a phone call in order to ensure that he has a urology appointment Discharge Plan Departure Patient Disposition: Home Clinical Impression: Flank pain Instructions: DI for Flank Pain Activity Restrictions/Additional Instructions: Dr. Lion recommends heat and 0.8mg daily of flomax (TAMSULOSIN). Pain medications will also be sent to your pharmacy. Call Dr. Lion's office tomorrow for followup Prescriptions: New hydrocodone-acetaminophen 5-325 mg tablet 1 tab PO Q8H PRN (Reason: pain) Qty: 7 0RF No Action allopurinol 300 mg tablet 300 mg PO DAILY Qty: 90 3RF amlodipine 10 mg tablet 10 mg PO DAILY Qty: 90 3RF atorvastatin 20 mg tablet 20 mg PO QPM Qty: 90 3RF triamterene-hydrochlorothiazid 37.5-25 mg capsule 1 cap PO DAILY Qty: 90 3RF oxybutynin chloride 5 mg tablet 5 mg PO .COMPLEX PRN (Reason: for bladder muscle dysfunction) Qty: 30 0RF Rx Instructions: 5 mg orally as needed for bladder spasms PRN; ciprofloxacin HCl 500 mg tablet 500 mg PO BID Qty: 10 0RF omeprazole 20 mg tablet,delayed release (DR/EC) 20 mg PO DAILY ascorbate calcium (vitamin C) 500 mg tablet 500 mg PO DAILY saw palmetto 160 mg capsule 320 mg PO DAILY Rx Instructions: give with meal/snack flaxseed oil 1,000 mg capsule 1,000 mg PO DAILY Rx Instructions: administer with a meal multivitamin Tablet 1 tab PO DAILY olmesartan 40 mg tablet 40 mg PO DAILY phenazopyridine [Pyridium] 200 mg tablet 200 mg PO TID PRN (Reason: Bladder irritation) Qty: 15 0RF tamsulosin 0.4 mg capsule 0.8 mg PO DAILY Qty: 60 12RF finasteride 5 mg tablet 5 mg PO DAILY Qty: 30 12RF Referrals: Kashmir Saul MD [Primary Care Provider] - Stand Alone Forms: Patient Portal/API
[2023-08-13] MEDS: KETOROLAC 30 MG/ML VIAL 15 MG IV (18:14)
[2023-08-13] MEDS: methylPREDNISolone 125 MG/2 ML VIAL IV (18:15)
[2023-08-13] MEDS: diphenhydrAMINE 50 MG/ML VIAL IV (18:15)
[2023-08-13] MEDS: ONDANSETRON 4 MG/2 ML INJ IV ×2 (18:15→18:25)
[2023-08-13 18:55] LABS: Appearance Urine UA CLEAR; Color Urine UA ORANGE; Specific Gravity Urine UA 1.015 (1.000-1.035)
[2023-08-13 18:56] LABS: Glucose Urine UA NEGATIVE (Negative); Occult Blood Urine UA 2+ (Negative)
[2023-08-13 19:03] LABS: Bacteria Urine Occasional (0-1); Culture Indicated Urine Cult Not Indicated; Mucus Urine 1+ (Negative); RBC Urine 1-5/HPF (0-5/HPF); Squamous Epithelial Cell Urine 0-1 /HPF (0-5/HPF); Urine Volume 10mL (spun); WBC Urine 1-5/HPF (0-5/HPF)
[2023-08-13] MEDS: MORPHINE 4 MG/ML INJ IV (20:17)
[2023-08-13] MEDS: HYDROCODONE/ACET 5/325 PREPACK 1 BOTTLE MISC (20:56)
== END 2023-08-13 21:08 | disposition home or self-care (01) ==
PROVIDERS: Emergency Medicine; Emergency Provider Emergency Medicine; PCP Internal Medicine
DX: R10.9 Unspecified abdominal pain (principal); R50.9 Fever, unspecified
CPT/HCPCS: 36415; 51701; 74177; 80053; 81003; 81015; 83605; 83690; 84145; 85025; 85610; 87040; 93005; 96374; 96375; 99284; J1200; J1885; J2270; J2405; J2919; Q9967

== ENCOUNTER → 2023-08-17 08:08 | Outpatient (CLI) | payer MEDICARE, OTHER, SELFPAY ==
[2023-08-24 16:35] LABS: Ca oxalate monohydr 20 % (.); Size 2x2 mm (.); Uric Acid 80 % (.)
== END ==
PROVIDERS: PCP Internal Medicine; Visit Provider Urology
DX: N39.0 Urinary tract infection, site not specified (principal); N20.0 Calculus of kidney; N21.0 Calculus in bladder
CPT/HCPCS: 82365; 87086

== ENCOUNTER → 2023-08-28 08:05 | Outpatient (CLI) | payer MEDICARE, OTHER, SELFPAY ==
--- NOTE | 2023-08-28 08:06 | DI.RAD.S_ITS ---
PROCEDURE: XR KUB INDICATIONS: Follow-up left renal calculus TECHNIQUE: One view of the abdomen acquired. COMPARISON: [facility], CT, CT ABDOMEN PELVIS W CON, 08/13/2023, 18:56. [facility], CR, XR KUB, 06/29/2023, 14:26. FINDINGS: Surgical changes and devices: Left double-J ureteral stent. Bowel: Bowel gas pattern is normal. Soft tissues: The small bilateral kidney stones seen on CT 08/13/2019 for are not well seen. No suspicious abdominal calcifications. Visualized solid organ contours appear normal in size. Bones: No suspicious bony lesions. IMPRESSION: Left double-J ureteral stent projects in the expected location. The small bilateral kidney stones seen on recent CT are not well appreciated. Dictated by: Pawan Rhoades M.D. on 08/28/2023 at 9:30 Approved by: Pawan Rhoades M.D. on 08/28/2023 at 9:33
== END ==
PROVIDERS: PCP Internal Medicine; Referring Provider Urology; Visit Provider Urology
DX: N20.0 Calculus of kidney (principal); N21.0 Calculus in bladder; Z96.0 Presence of urogenital implants
CPT/HCPCS: 74018; 82365

== ENCOUNTER → 2023-08-28 15:35 | Outpatient (CLI) | payer MEDICARE, OTHER, SELFPAY | PROVIDERS: PCP Internal Medicine; Visit Provider Urology | DX: N21.0 Calculus in bladder (principal); N20.0 Calculus of kidney | CPT/HCPCS: 82365 ==

== ENCOUNTER → 2023-09-08 08:26 | Outpatient (CLI) | payer MEDICARE, OTHER, SELFPAY | PROVIDERS: PCP Internal Medicine; Visit Provider Urology | DX: N39.0 Urinary tract infection, site not specified (principal) | CPT/HCPCS: 87086 ==

== ENCOUNTER → 2023-09-15 09:01 | Outpatient (CLI) | payer MEDICARE, OTHER, SELFPAY ==
[2023-09-21 17:36] LABS: Ca oxalate monohydr 60 % (.); Size 3x3 mm (.); Uric Acid 40 % (.)
== END ==
PROVIDERS: PCP Internal Medicine; Visit Provider Urology
DX: N20.0 Calculus of kidney (principal); N40.1 Benign prostatic hyperplasia with lower urinary tract symptoms; R33.9 Retention of urine, unspecified
CPT/HCPCS: 52310; 81002; 82365

== ENCOUNTER 2023-10-10 06:39 | Day surgery (SDC) | payer MEDICARE, OTHER, SELFPAY ==
[2023-10-05 09:59] VITALS: BMI 33.3
[2023-10-10] VITALS (8 sets, daily range): BP systolic 114–152; BP diastolic 73–80; PULSE 62–97; RESP 12–17; TEMP 36.1–37.5; O2SAT 95–100; BMI 33.3
--- NOTE | 2023-10-10 | PATH_ITS ---
[facility] Accession Number: [id number] No. of containers..01 Tissue . 01 Material submitted: . prostate - PROSTATE CHIPS . 01 Diagnosis: PROSTATE, TRANSURETHRAL RESECTION OF PROSTATE: Benign prostatic parenchyma with features of benign prostatic hyperplasia. No evidence of malignancy. V 10/16/2023 1239 Local . 01 Electronically signed: . Delta Benavides MD, PhD, Pathologist NPI- [id number] . 01 Gross description: . Received in formalin with two patient identifiers and prostate chips, are multiple miner rubbery soft tissue fragments admixed with hemorrhagic material aggregating to 6.2 x 4.2 x 1.3 cm and weighs 8 grams. No distinct lesions are identified, and the specimen is submitted entirely in cassettes A1-A7. ([id number]) /V 10/11/2023 1424 Local . 01 Pathologist provided ICD-10: N40.1, R33.9 . 01 CPT . 518725 Specimen Comment: A courtesy copy of this report has been sent to [phone] Performed at: [address] [id number] MD Mandeep Chavez MD Phone: [phone]
[2023-10-10] MEDS: LACTATED RINGERS 1,000 ML 21 ML IV (07:40)
[2023-10-10] MEDS: ACETAMINOPHEN 325 MG TABLET 975 MG PO (07:42)
--- NOTE | 2023-10-10 07:42 | PM.PREOP ---
Pre-operative Note COVID-19 COVID-19 status: Not tested Interval Note History & Physical reviewed/Exam performed by Physician: Yes Changes to H&P: No
[2023-10-10] MEDS: CEFAZOLIN 2 GM/100 ML PREMIX 100 ML IV (08:00)
--- NOTE | 2023-10-10 08:21 | SUR.OPER ---
Lithotomy on padded OR bed, head on pillow, arms secured on padded arm boards at <90 degrees abduction. Legs secured in padded yellow fins stirrups.
--- NOTE | 2023-10-10 09:48 | PM.OP.1 ---
Procedure & Clinicians Procedure: 1. Aquablation resection of prostate 2. Transrectal ultrasound of prostate 3. Transurethral resection and fulguration of prostate bladder neck Same procedure as scheduled: Yes Indications: This 72-year-old male presented with multiple urologic complaints. He had significant benign prostatic hyperplasia with lower urinary tract symptom and had then urinary retention. He has been on intermittent catheterization and at workup was found to be an excellent candidate for Aquablation. He does have some detrusor insufficiency but of late has been voiding a larger part of his bladder even against the obstruction and it was felt it was time to remove the obstructive tissue in the patient presents for Aquablation to do this. Patient does have a median lobe, no evidence of prostate cancer, prostate which is in the 92-98 g range. In urinary retention so no uroflow was obtained. He presents this time for Aquablation as noted above. Surgeon: Lavon Lion Click Yes if Unassisted: Yes Anesthesia Type: General Operative Notes Findings: Urethral meatus is normal urethra is normal to the sphincter which was well coapted mucosa is normal throughout the prostate shows marked obstructive character with bulging into the bladder and median lobe. The ureteral orifices in normal position with clear efflux. Severe trabeculation and cellules noted in the bladder. There is a scar from previous resection of bladder tumor no evidence of bladder tumor is noted. At the end of the procedure the prostatic fossa was widely patent. Hemostasis was good and a 24 Austrian three-way hematuria catheter was left in place with 45 cc in the balloon. All prostatic chips were evacuated and no other abnormality was noted. Closure Type: not applicable Specimen(s): other (Prostate chips) Prosthetic devices, grafts, tissues, transplants, or devices: 24 Austrian 30 cc three-way hematuria catheter with 45 cc in the balloon is left in the system. Estimated Blood Loss (mL): 75 Blood products transfused: none Procedure in detail: Procedure in detail: After informed consent was obtained, the patient was identified and brought to the operating room where he is placed in his supine position on the table. Once there anesthesia was induced to maintain. Ensuring an adequate level of anesthesia the patient was transitioned to the lithotomy position where he was prepped. After time-out, ensuring an adequate level of anesthesia, administration of antibiotics 60 cc of ultrasound gel was instilled in the patient's rectum followed by the ultrasound probe. The ultrasound probe was attached to the truss stepper which was mounted to the articulating arm which he had been secured to the table. The ultrasound probe was aligned and confirmation made that the prostate was centered aligned in both the transverse and sagittal views. The bladder neck was identified. With this done the patient was then draped in the sterile fashion incompletely prepared for the Aquablation procedure. At this point the 24 Austrian aqua beam handpiece was inserted into the prostatic urethra prostate and into the bladder under direct vision. The level of the sphincter and verumontanum were noted on the ultrasound with the ultrasound in longitudinal view. The occupying hand piece was then in secured to the handpiece articulating arm which he had been secured to the table. The alignment of the aqua beam handpiece and ultrasound probe to be parallel and colinear was confirmed. Confirmation of the aqua beam handpiece and nodule being anterior of the bladder neck was done. The cystoscope was then retracted to visualize the external sphincter and verumontanum had the tip of the scope was positioned just proximal to the external sphincter. Reconfirmation of alignment of the truss probe and aqua beam handpiece was done compression was applied with a truss probe and horizontal alignment of the water jet was performed in standard fashion. The treatment zone was in the transverse plane were then marked again specifically the rotational angle and the depth of resection. Then in the longitudinal view the length of resection was marked. Using the water jet at 20% to identify the bladder neck and 1st tissue to be resected. And then going back to the tip of the scope parallel to the hand piece. Then the treatment plan in the longitudinal view was performed and confirmed. With this confirmed the Aquablation treatment was then started in the 1st pass was 4 minute and 19 seconds. A 2nd pass was performed making adjustments moving the margins ever so slightly inward. This also was 4 minutes and 19 seconds was determine that a 3rd pass would be beneficial particularly in the proximal prostate the margins were then marked and treatment done this was 1 minute and 8 seconds. With this done the cystoscope was advanced to the tip of the hand piece and the hand piece and cystoscope were looked out under direct vision. The resectoscope was then passed through the urethra prostate and in the bladder under direct vision and ultrasound guidance. Once there the bladder was evacuate helix evacuator was used to washout the prostatic fossa and bladder. The resectoscope was then inserted and then going from approximately the 2 to 3 o'clock position around to the 9 to 10 o'clock position having confirmed the position of the ureteral orifices and that they were intact and on scale the bladder neck tissue was resected and points of bleeding controlled. At 12:00 p.m. at the bladder neck there were a couple of areas of bleeding which were resected. The patient did have some lateral tissue from the 1 to 3 o'clock position which was resected. This was median lobe protrusion this was repeated in mirror fashion on the opposite side of the prostate. Attention was then turned to the level of the verumontanum there were a couple of flaps of tissue posteriorly that were resected opening up the channel there were some bleeding anteriorly which was controlled with the electrocautery. With this done Ellik evacuator was once again inserted and the prostatic chips evacuated as well as the prostatic fossa washed out with the Ellik evacuator. Scope was once again inserted there were few more bleeding points which were controlled again the Ellik evacuator was used to evacuate any remaining clot and tissue the bladder was once again filled points of bleeding appeared to be well controlled the scope was removed and the patient had a vigorous stream. The 24 Austrian catheter was then passed easily into the bladder with the aid of a catheter guide and this was also under ultrasound guidance. The balloon was filled with 45 cc of sterile water and the catheter seated at the bladder neck. The bladder was then irrigated and the effluent was ever so slightly pink to blush. At this point the patient was awakened having tolerated the procedure well of note as hemostasis was achieved the patient's blood pressure approximated his normal waking blood pressure. With the catheter to gravity drainage again the patient was awakened having tolerated the procedure well there were no complications patient was transferred to the postanesthesia care unit for recovery. Note continue his bladder irrigation was instituted in the operating room and taken with the patient to the postanesthesia care unit. Complications: none Post-operative Condition: stable Disposition: PACU Plan for aftercare: Patient is to be observed in the postanesthesia care unit and will remain an outpatient. And either be discharged directly from the PACU or go up to the floor for further care to be discharged likely within 23 hours.
[2023-10-10] MEDS: PHENAZOPYRIDINE 100 MG TABLET 200 MG PO (10:26)
[2023-10-10] MEDS: OXYBUTYNIN 5 MG TABLET PO (10:26)
[2023-10-10] MEDS: OXYCODONE IR 5 MG TABLET PO (11:37)
== END 2023-10-10 13:55 | disposition home or self-care (01) ==
PROVIDERS: PCP Internal Medicine; Referring Provider Urology; Visit Provider Urology
PROC: 0VT08ZZ Resection of Prostate, Via Natural or Artificial Opening Endoscopic (ICD-10-PCS; CPT 52597; principal; 2023-10-10 07:45)
DX: N40.1 Benign prostatic hyperplasia with lower urinary tract symptoms (principal); R33.9 Retention of urine, unspecified
CPT/HCPCS: 0421T; C2596; J0690; J1100; J2405; J2704; J3010

== ENCOUNTER → 2023-10-19 08:15 | Outpatient (CLI) | payer MEDICARE, OTHER, SELFPAY | PROVIDERS: PCP Internal Medicine; Visit Provider Urology | DX: N39.0 Urinary tract infection, site not specified (principal); N40.1 Benign prostatic hyperplasia with lower urinary tract symptoms; N13.8 Other obstructive and reflux uropathy; R33.8 Other retention of urine; Z87.898 Personal history of other specified conditions | CPT/HCPCS: 51798; 81002; 87086 ==

== ENCOUNTER → 2023-10-27 08:19 | Outpatient (CLI) | payer MEDICARE, OTHER, SELFPAY | PROVIDERS: PCP Internal Medicine; Visit Provider Urology | DX: N40.1 Benign prostatic hyperplasia with lower urinary tract symptoms (principal); N39.0 Urinary tract infection, site not specified; N13.8 Other obstructive and reflux uropathy; R33.8 Other retention of urine; Z78.9 Other specified health status | CPT/HCPCS: 51798; 81002; 87086 ==

== ENCOUNTER → 2023-11-16 08:07 | Outpatient (CLI) | payer MEDICARE, OTHER, SELFPAY | PROVIDERS: PCP Internal Medicine; Referring Provider Urology; Visit Provider Urology | DX: N40.1 Benign prostatic hyperplasia with lower urinary tract symptoms (principal) | CPT/HCPCS: 87086 ==

== ENCOUNTER → 2023-12-27 08:33 | Outpatient (CLI) | payer MEDICARE, OTHER, SELFPAY | PROVIDERS: PCP Internal Medicine; Visit Provider Urology | DX: N40.1 Benign prostatic hyperplasia with lower urinary tract symptoms (principal); N39.0 Urinary tract infection, site not specified; N13.8 Other obstructive and reflux uropathy | CPT/HCPCS: 87077; 87086 ==

== ENCOUNTER → 2024-03-06 07:12 | Outpatient (CLI) | payer MEDICARE, OTHER, SELFPAY ==
[2024-03-08 11:36] LABS: PSA Free % 28.9 % (.); PSA, Total 1.8 ng/mL (0.0-4.0)
== END ==
PROVIDERS: PCP Internal Medicine; Referring Provider Urology; Visit Provider Urology
DX: R97.20 Elevated prostate specific antigen [PSA] (principal); N13.8 Other obstructive and reflux uropathy; N40.1 Benign prostatic hyperplasia with lower urinary tract symptoms
CPT/HCPCS: 36415; 84153; 84154

== ENCOUNTER → 2024-03-14 14:42 | Outpatient (CLI) | payer MEDICARE, OTHER, SELFPAY ==
--- NOTE | 2024-03-14 14:43 | DI.RAD.S_ITS ---
PROCEDURE: XR KUB INDICATIONS: Follow-up kidney stones/history of bladder calculi TECHNIQUE: One view of the abdomen acquired. COMPARISON: [facility], CR, XR KUB, 08/28/2023, 8:14. FINDINGS: Surgical changes and devices: There is interval removal of previously noted left-sided ureteral stent. Bowel: Bowel gas pattern is nonobstructive. No gross pneumoperitoneum. Moderate fecal stasis throughout the colon is seen. Soft tissues: No suspicious abdominal calcifications. Visualized solid organ contours appear normal in size. Bones: No suspicious bony lesions. IMPRESSION: No gross renal calcification is seen. Bowel gas pattern is nonobstructive. Moderate constipation. Dictated by: Allan Peters M.D. on 03/14/2024 at 16:34 Approved by: Allan Peters M.D. on 03/14/2024 at 16:34
== END ==
PROVIDERS: PCP Internal Medicine; Referring Provider Urology; Visit Provider Urology
DX: K59.00 Constipation, unspecified (principal); Z87.442 Personal history of urinary calculi
CPT/HCPCS: 74018

== ENCOUNTER → 2024-05-16 08:38 | Outpatient (CLI) | payer MEDICARE, OTHER, SELFPAY ==
[2024-05-16 09:20] LABS: Hemoglobin A1C% w Est Avg Glu 5.5 % (4.0-6.0)
[2024-05-16 10:02] LABS: Calcium 9.8 mg/dL (8.4-10.2); Chloride 101 mmol/L (98-107); Cholesterol 181 mg/dL (140-199); Glucose 97 mg/dL (80-110); HDL Cholesterol 41 mg/dL (40-60); HEMOLYSIS < 15 (0-50); LDL Cholesterol Calculated 95 mg/dL (<100); Potassium 3.9 mmol/L (3.4-5.1); Sodium 136 mmol/L (137-145); Triglycerides 224 mg/dL (35-150)
[2024-05-16 10:04] LABS: Aspartate Aminotransferase 30 IU/L (17-59); BUN Creatinine Ratio 21.3 (6-22); Blood Urea Nitrogen 19 mg/dL (9-20); Carbon Dioxide 29 mmol/L (22-32); Estimated Glomerular Filt Rate > 60 mL/min (>60)
[2024-05-16 10:30] LABS: TSH w/ Reflex to FT4 2.58 uIU/mL (0.47-4.68)
== END ==
LOC: LAB 08:39
PROVIDERS: PCP Internal Medicine; Referring Provider Internal Medicine; Visit Provider Internal Medicine
DX: R73.09 Other abnormal glucose (principal); E78.2 Mixed hyperlipidemia; I10 Essential (primary) hypertension
CPT/HCPCS: 36415; 80048; 80061; 83036; 84443; 84450

== ENCOUNTER → 2024-06-27 13:52 | Outpatient (CLI) | payer MEDICARE, OTHER, SELFPAY ==
--- NOTE | 2024-06-27 13:54 | DI.RAD.S_ITS ---
PROCEDURE: XR LUMBAR SPINE MIN 4V INDICATIONS: BACK PAIN TECHNIQUE: 5 views of the lumbar spine were acquired, including bilateral oblique views. COMPARISON: [facility], CT, CT ABDOMEN PELVIS W CON, 08/13/2023, 18:56. FINDINGS: Bones: 5 nonrib-bearing vertebrae are present. Alignment is within normal limits. Osteophytic lipping. No vertebral body compression fractures. No suspicious bony lesions. Moderate bilateral hip DJD. Soft tissues: Overlying bowel gas pattern is normal. No suspicious soft tissue calcifications. Possible intraosseous hemangioma at L3. Oblique images: No pars defects. IMPRESSION: No acute bony abnormality. Moderate degenerative changes. Dictated by: Pawan Rhoades M.D. on 06/27/2024 at 15:03 Approved by: Pawan Rhoades M.D. on 06/27/2024 at 15:06
== END ==
PROVIDERS: PCP Internal Medicine; Referring Provider Physical Medicine & Rehabilitation; Visit Provider Physical Medicine & Rehabilitation
DX: M54.41 Lumbago with sciatica, right side (principal); M54.42 Lumbago with sciatica, left side; M16.0 Bilateral primary osteoarthritis of hip; G89.29 Other chronic pain
CPT/HCPCS: 72110

== ENCOUNTER → 2024-07-03 07:42 | Outpatient (CLI) | payer MEDICARE, OTHER, SELFPAY ==
--- NOTE | 2024-07-03 07:43 | DI.MRI.S_ITS ---
PROCEDURE: MR LUMBAR SPINE WO CON INDICATIONS: Lumbar Radicu TECHNIQUE: Noncontrast sagittal T1 spin echo and T2 fast echo, sagittal STIR, and T2 fast spin echo through the lumbar spine. In cases with scoliosis, additional coronal T2 fast spin echo may be performed. COMPARISON: [facility], CT, CT ABDOMEN PELVIS W CON, 08/13/2023, 18:56. [facility], CR, XR LUMBAR SPINE MIN 4V, 06/27/2024, 13:58. FINDINGS: Image quality: Excellent. Alignment and Curvature: There is normal bony alignment. Bone Marrow: Marrow is of normal overall signal. Scattered foci are seen, which are hyperintense on T1-weighted and T2-weighted imaging, which are most consistent with benign vertebral body hemangiomas. The most prominent of these is seen at the L3 level. No acute vertebral body compression fractures. Spinal Cord: Conus medullaris terminates at the T12-L1 level. Visualized cord demonstrates normal signal and size. Paraspinous Soft Tissues: No paravertebral masses. T12-L1: Normal appearance. L1-L2: The disc height is well-preserved. Loss of disc signal is seen at this level. Mild generalized disc bulge is seen. Mild to moderate bilateral neural foraminal narrowing is seen. No significant central canal narrowing is seen. L2-L3: The disc height is well-preserved. Loss of disc signal is seen at this level. Mild to moderate disc bulge is seen. There is a superimposed central disc protrusion. Mild facet joint hypertrophy is seen. No significant neural foraminal narrowing is seen. Mild to moderate central canal narrowing is seen. L3-L4: Mild loss of disc height is seen. Loss of disc signal is seen. Moderate generalized disc bulge is seen. There is a superimposed central disc protrusion. Mild to moderate facet hypertrophy is seen. Moderate bilateral neural foraminal narrowing is seen. At least moderate central canal narrowing is seen at this level. L4-L5: The disc height is well-preserved. Loss of disc signal is seen at this level. Moderate generalized disc bulge is seen. There is a central disc extrusion seen, with inferior migration of the disc material. At least moderate facet hypertrophy is seen. Fluid is seen within the facet joints themselves. Moderate bilateral neural foraminal narrowing is seen. There is severe central canal narrowing, as on series 5, images 25 and 26. L5-S1: Mild loss of disc height is seen. Loss of disc signal is seen. Mild generalized disc bulge is seen. Mild facet joint hypertrophy is seen. There is [id number] left-sided and moderate right-sided neural foraminal narrowing. Mild central canal narrowing is seen. IMPRESSION: At the L4-L5 level, there is a central disc extrusion seen, with severe central canal narrowing. Milder degenerative changes are seen elsewhere. Dictated by: Conor Connell M.D. on 07/03/2024 at 10:32 Approved by: Conor Connell M.D. on 07/03/2024 at 10:35
== END ==
PROVIDERS: PCP Internal Medicine; Referring Provider Physical Medicine & Rehabilitation; Visit Provider Physical Medicine & Rehabilitation
DX: M51.16 Intervertebral disc disorders with radiculopathy, lumbar region (principal); M47.26 Other spondylosis with radiculopathy, lumbar region; M47.27 Other spondylosis with radiculopathy, lumbosacral region; M48.061 Spinal stenosis, lumbar region without neurogenic claudication; M48.07 Spinal stenosis, lumbosacral region; G89.29 Other chronic pain
CPT/HCPCS: 72148

== ENCOUNTER 2024-07-09 11:41 | Day surgery (SDC) | payer MEDICARE, OTHER, SELFPAY ==
[2024-06-26 09:59] VITALS: BMI 33.3
[2024-07-09] VITALS (10 sets, daily range): BP systolic 150–179; BP diastolic 84–101; PULSE 68–89; RESP 12–21; TEMP 36.2–36.7; O2SAT 92–98; BMI 33.3
[2024-07-09] MEDS: ACETAMINOPHEN 325 MG TABLET 975 MG PO (11:58)
[2024-07-09] MEDS: FAMOTIDINE 20 MG/2 ML VIAL IV (11:59)
[2024-07-09] MEDS: LACTATED RINGERS 1,000 ML 42 ML IV (11:59)
--- NOTE | 2024-07-09 12:55 | PM.HP.IH.1 ---
History of Present Illness History of Present Illness Date Patient Seen: 07/09/24 Time Patient Seen: 12:55 Chief complaint: Left Laparoscopic Inguinal Hernia Repair Narrative: Fabien is here for his left inguinal hernia repair. See the office note from June for details. FORMERLY [facility] Medical History Degenerative joint disease of both hips Hiatal hernia (05/05/22) Benign prostatic hyperplasia with lower urinary tract symptoms Intermittent self-catheterization of bladder Pancreatic cyst Venous (peripheral) insufficiency Chronic low back pain with bilateral sciatica Urinary retention Bladder cancer Bladder calculi Kidney stone on left side Incomplete emptying of bladder History of gross hematuria History of kidney stones Allergic rhinitis Obesity (BMI 30.0-34.9) Elevated PSA BPH w urinary obs/LUTS GERD without esophagitis Primary osteoarthritis involving multiple joints Mixed hyperlipidemia Essential hypertension Allergies (~1969) Gout (~2020) Chronic back pain (~2009) Mumps (~1959) Measles (~1959) Chicken pox (~1959) Barretts esophagus (~2004) Urinary hesitancy No significant medical problems Surgical History Hx of colonoscopy (05/05/22) History of esophagogastroduodenoscopy (EGD) (05/05/22) History of urologic surgery (08/08/23) H/O transurethral resection of bladder tumor (TURBT) (08/23/22) Anesthesia History of lithotripsy (~1999) History of lithotripsy (~1993) Family History Father History of heart disease Mother History of heart disease Brother Brain tumor Grandfather History of heart disease Grandmother History of heart disease Grandmother Stroke Social History marital status: details: (Carola), scientific consulting/physics/safety number of children: 4 household members: spouse lives independently: Yes occupational status: previously employed Smoking Status: Never smoker alcohol intake: former substance use type: does not use caffeine: Yes Type(s) of exercise: other frequency: daily Meds Home Medications and Allergies Home Medications Medication Instructions Recorded Confirmed Type ascorbate calcium (vitamin C) 500 500 mg PO DAILY 09/03/21 07/09/24 History mg tablet flaxseed oil 1,000 mg capsule 1,000 mg PO DAILY 09/03/21 07/09/24 History multivitamin 1 tab PO DAILY 09/03/21 07/09/24 History omeprazole 20 mg tablet,delayed 20 mg PO DAILY 09/03/21 07/09/24 History release saw palmetto 160 mg capsule 320 mg PO DAILY 09/03/21 07/01/24 History acetaminophen 500 mg capsule 500 mg PO Q6H PRN Pain (Scale 08/17/23 07/09/24 History Score 4-6) turmeric 400 mg capsule mg PO 11/16/23 07/01/24 History allopurinol 300 mg tablet 300 mg PO DAILY #90 tabs 05/16/24 07/09/24 Rx amlodipine 10 mg tablet 10 mg PO DAILY #90 tabs 05/16/24 07/09/24 Rx atorvastatin 20 mg tablet 20 mg PO QPM #90 tabs 05/16/24 07/09/24 Rx olmesartan 40 mg tablet 40 mg PO DAILY #90 tabs 05/16/24 07/09/24 Rx triamterene 37.5 1 cap PO DAILY #90 caps 05/16/24 07/09/24 Rx mg-hydrochlorothiazide 25 mg capsule finasteride 5 mg tablet 5 mg PO DAILY #30 tabs 06/26/24 07/09/24 Rx tamsulosin 0.4 mg capsule 0.8 mg (2 x 0.4 mg) PO DAILY #60 06/26/24 07/09/24 Rx caps meloxicam 15 mg tablet 15 mg PO DAILY #30 tabs 07/01/24 07/09/24 Rx Allergies Allergy/AdvReac Type Severity Reaction Status Date / Time Iodinated Contrast Media Allergy Unknown Verified 07/09/24 12:07 Exam Vital Signs (past 8 hours): - 07/09/24 12:22 Temperature 97.1 F L Pulse Rate 68 Respiratory Rate 16 Blood Pressure 161/86 H Pulse Oximetry 98 Oxygen Delivery Method Room Air Oxygen Delivery Method Room Air Const General: healthy appearing Resp Effort & Inspection: normal respiratory effort Assessment & Plan Assessment and plan (1) Left inguinal hernia: Status: Acute Plan Laparoscopic left inguinal hernia repair Time-Based Coding :: [TOTAL MINUTES] spent with patient and on the chart (including review of chart, obtaining history, exam, reviewing outside data, placing orders, documenting exam and treatment plan, and counseling patient) on [DATE]. PROFEE Instructor Extension Work Document charge(s): No
--- NOTE | 2024-07-09 13:12 | SUR.OPER ---
Supine on padded OR bed with pink pad, head on pillow, arms padded and tucked at sides, legs uncrossed, safety belt at thigh, tape over blanket over lower legs .
[2024-07-09] MEDS: CEFAZOLIN 2 GM/100 ML PREMIX 100 ML IV (13:40)
[2024-07-09] MEDS: BUPIVACAINE 0.5% W/ EPI (PF) 30 ML VIAL INJ (14:02)
--- NOTE | 2024-07-09 15:22 | PM.OP.1 ---
Operative Date/Time/Diagnoses Date of procedure: 07/09/24 Time of procedure: 15:22 Pre-op diagnosis: Left inguinal hernia Post-op diagnosis: other (Left indirect inguinal hernia) Procedure & Clinicians Procedure: Laparoscopic left inguinal hernia repair with mesh Same procedure as scheduled: Yes Surgeon: Luke Tierney Independent Living Advisor: Oswald French Anesthesia Type: General Operative Notes Procedure in detail: The patient was given preoperative antibiotics. The patient was brought to the operating room, placed on the table in the supine position with the arms tucked and general anesthesia was induced. The abdomen was prepped and draped in the usual fashion. A time-out was performed. A 1 cm infraumbilical incision was created and dissection was carried down to the base of the umbilical stalk. There was a small 1 cm umbilical hernia. The sac was opened and the Parviz port was placed directly through the umbilical defect and the abdomen was insufflated to 15 mmHg. The camera was inserted, there was no evidence of any injury from the entry. There was a large indirect left inguinal hernia. 5 mm ports were placed under direct vision in the mid left and mid right abdomen. The patient was positioned in Trendelenburg. We created a left peritoneal flap. There was a significant amount of peritoneum and fatty tissue, possibly bladder incarcerated through the inguinal hernia. Steven's ligament was exposed. A large left Bard mesh was brought in and placed over the defect with the medial edge against Steven's ligament. We then closed the peritoneal flap with a running 3-0 barbed suture. There was a tear in the peritoneum which was closed with an additional running 3-0 barbed suture. We took one last look around the abdomen and saw no other abnormalities. The suture was removed and accounted for. The 5 mm ports were removed under direct vision. The abdomen was desufflated. The Parviz port was removed. Additional local was injected into the fascia and the fascial incision was closed with 2 interrupted 0 Vicryl sutures. The skin incisions were closed with 4 Monocryl, Steri-Strips and Band-Aids. EBL: 10 mL Oswald GREGORY provided assistance with exposure, retraction and closure of incisions. Post-operative Condition: stable Disposition: PACU
[2024-07-09] MEDS: KETOROLAC 30 MG/ML VIAL 15 MG IV (15:55)
== END 2024-07-09 17:00 | disposition home or self-care (01) ==
PROVIDERS: PCP Internal Medicine; Referring Provider Surgery; Visit Provider Surgery
PROC: 0YQ64ZZ Repair Left Inguinal Region, Percutaneous Endoscopic Approach (ICD-10-PCS; CPT 49650; principal; 2024-07-09 13:00)
DX: K40.90 Unilateral inguinal hernia, without obstruction or gangrene, not specified as recurrent (principal); K42.9 Umbilical hernia without obstruction or gangrene
CPT/HCPCS: 49650; C1781; J0690; J1100; J1885; J2405; J2704; J3010; J3490

== ENCOUNTER 2024-08-13 08:10 | Outpatient (CLI) | payer MEDICARE, OTHER, SELFPAY ==
[2024-08-13] VITALS (8 sets, daily range): BP systolic 131–149; BP diastolic 70–79; PULSE 59–66; RESP 14–17; TEMP 36.5; O2SAT 94–98
[2024-08-13] MEDS: MIDAZOLAM 2 MG/2 ML VIAL IV (09:10)
[2024-08-13] MEDS: BUPIVACAINE 0.25% (PF) VIAL 2 ML INJ (09:18)
[2024-08-13] MEDS: BETAMETHASONE 30 MG/5 ML MDV 12 MG INJ (09:19)
[2024-08-13] MEDS: iopamidoL 15 ML VIAL 3 ML INJ (09:19)
[2024-08-13] MEDS: DEXAMETHASONE 10 MG/ML VIAL INJ (09:19)
--- NOTE | 2024-08-13 09:28 | P.PCN_ITS ---
Date/Time/Diagnoses Date of procedure: 08/13/24 Time of procedure: 09:28 Pre-procedure diagnosis: 1. HNP WITH RADICULAR FEATURES, 2. MULTILEVEL CENTRAL STENOSIS, Post-procedure diagnosis: same Procedure Notes Procedure: 1. FLUOROSCOPICALLY GUIDED CONTRAST CONTROLLED INTERLAMINAR EPIDURAL STEROID INJECTION -L4/5 Indications: Papo is referred by Dr. Saul for treatment of Bilateral Foraminal Stenosis R>L LE symptoms. Physician: Piter Whyte Total Fluoroscopy time (seconds): 7 Total sedation minutes: 14 Complications: none Procedure in detail & Post-procedure care: FINDINGS Multilevel Central Spinal Stenosis with Nerve Root Compression DESCRIPTION OF PROCEDURE Fluoroscopically guided, contrast-controlled L4/5 translaminar epidural steroid injection. Following review of allergy and review of potential side effects and complications, including, but not necessarily limited to, infection, allergic reaction, local tissue breakdown, temporary as well as permanent nerve injury, paralysis, stroke and possible , the patient indicated that the patient understood and agreed to proceed. An informed consent document was signed by the patient, witnessed by a nurse, and placed in the patient's chart. Additionally, other treatment options including modalities, medications, and physical therapy were reviewed with the patient. After review of previous anaesthesic history and IV conscious sedation the patient was deemed safe to proceed with today?s procedure with IV conscious sedation as ASA class II designation. Safety time-out was performed to confirm patient ID, procedure to be performed and site of procedure. IV sedation was accomplished with a combination of 2mg of Versed was administered by the RN after DO order, titrated to patient comfort during the course of the procedure while the patient remained responsive to all verbal commands In the prone position, following sterile prep and drape of the lumbar region, the L4/5 translaminar space was identified fluoroscopically. The skin was anesthetized via a 25-gauge, 1.5inch needle with 1% lidocaine solution. At this point, a 22-gauge short bevel spinal needle was atraumatically introduced and advanced under fluoroscopic guidance into the region of the L4/5 translaminar space. Depth was confirmed on lateral view. Radiological data, including multiple fluoroscopic views of the lumbar spine, reveal a spinal needle at the L4/5 translaminar space. Lateral views then show placement of the needle in the epidural space. Subsequent views show contrast material flowing superiorly and inferiorly in the epidural space. No vascular or intrathecal uptake is observed. At this point, using loss of resistance technique with saline and air, the epidural space was entered. This was confirmed following negative aspiration with injection of approximately 1.5cc of Isovue 200, showing excellent epidural flow without vascular or intrathecal uptake. At this point, 1cc of 1% lidocaine solution combined with 2cc or 10mg of dexamethasone and 6mg betamethasone was injected without incident. The patient tolerated the procedure well without signs or symptoms of complications prior to transfer to the recovery area continued monitoring without incident. The patient was then transferred to the recovery area where they were observed for an appropriate period of time after the injection. The patient reported a VAS score of 6 prior to the procedure and a post- procedure VAS of 0. POST OP INSTRUCTIONS The patient was provided a Pain Log to continue to record their response to the target-specific procedure prior to follow-up visit with their referring physician. Additionally, specific post-injection care instructions and a contact number to our office were provided if concerns arise regarding possible complications associated with the procedure are suspected.
== END 2024-08-13 09:40 | disposition home or self-care (01) ==
PROVIDERS: PCP Internal Medicine; Referring Provider Physical Medicine & Rehabilitation; Visit Provider Physical Medicine & Rehabilitation
DX: M51.16 Intervertebral disc disorders with radiculopathy, lumbar region (principal); M48.061 Spinal stenosis, lumbar region without neurogenic claudication
CPT/HCPCS: 62323; 99152; J0702; J1100; J2250; J3490

== ENCOUNTER → 2024-09-06 08:19 | Outpatient (CLI) | payer MEDICARE, OTHER, SELFPAY ==
--- NOTE | 2024-09-06 08:20 | DI.US.S_ITS ---
PROCEDURE: US SCROTUM INDICATIONS: LEFT SCROTAL FIRM MASS SINCE LT HERNIA REPAIR 06/2024 TECHNIQUE: Real-time scanning was performed of the scrotum and testicles, with image documentation. Color and pulse Doppler interrogation was performed of both testicles. COMPARISON: None. FINDINGS: Right: Testicle is normal in size at 3.5 x 2.4 x 1.8 cm, and homogenous in echotexture. Small testicular cyst measuring 3 mm. Epididymis is normal in overall size and morphology. No hydrocele or varicoceles. Overlying scrotal skin is normal in thickness. Left: Testicle is normal in size at 4.1 x 3.1 x 1.9 cm, and homogeneous in echotexture. Epididymis is normal in overall size and morphology. Multiple epididymal head cysts, largest measuring 2 mm. No hydrocele. Mild varicoceles. Overlying scrotal skin is normal in thickness. Doppler: Color and pulse Doppler demonstrate normal and symmetric arterial flow in both testicles. Within the left groin/scrotum, there is a complex multi septated fluid collection with debris and peripheral vascularity measuring 8.9 x 4.2 x 3.8 cm. IMPRESSION: Complex multi septated fluid collection within the left groin/scrotum measuring up to 8.9 cm. Mild left varicoceles. Testes and epididymides are otherwise normal in appearance. Dictated by: Victor Manuel Ingram M.D. on 09/06/2024 at 11:27 Approved by: Victor Manuel Ingram M.D. on 09/06/2024 at 11:31
== END ==
LOC: US 08:20
PROVIDERS: PCP Internal Medicine; Referring Provider Surgery; Visit Provider Surgery
DX: L72.9 Follicular cyst of the skin and subcutaneous tissue, unspecified (principal); I86.1 Scrotal varices
CPT/HCPCS: 76870

== ENCOUNTER → 2024-09-19 07:54 | Outpatient (CLI) | payer MEDICARE, OTHER, SELFPAY ==
--- NOTE | 2024-09-19 07:56 | DI.RAD.S_ITS ---
PROCEDURE: XR KUB INDICATIONS: Rule out recurrent stones TECHNIQUE: One view of the abdomen acquired. COMPARISON: [facility], CR, XR KUB, 03/14/2024, 14:53. FINDINGS: Surgical changes and devices: None. Bowel: Bowel gas pattern is normal. Soft tissues: No suspicious abdominal calcifications. Renal stones not identified. Renal fossa bilaterally somewhat is screwed by bowel gas. Visualized solid organ contours appear normal in size. Bones: No suspicious bony lesions. IMPRESSION: No renal stones are identified on this study. Dictated by: Woody Johnston M.D. on 09/19/2024 at 9:47 Approved by: Woody Johnston M.D. on 09/19/2024 at 9:48
== END ==
PROVIDERS: PCP Internal Medicine; Referring Provider Urology; Visit Provider Urology
DX: Z87.442 Personal history of urinary calculi (principal)
CPT/HCPCS: 74018

== ENCOUNTER → 2024-10-02 14:03 | Outpatient (CLI) | payer MEDICARE, OTHER, SELFPAY | PROVIDERS: PCP Internal Medicine; Visit Provider Urology | DX: C67.9 Malignant neoplasm of bladder, unspecified (principal); N40.1 Benign prostatic hyperplasia with lower urinary tract symptoms; N13.8 Other obstructive and reflux uropathy; R97.20 Elevated prostate specific antigen [PSA]; R33.8 Other retention of urine | CPT/HCPCS: 52000; 81002; 87077; 87086; 87147; 87186; 99213 ==

== ENCOUNTER 2024-10-11 09:25 | Day surgery (SDC) | payer MEDICARE, OTHER, SELFPAY ==
[2024-10-10 15:01] VITALS: BMI 33.3
[2024-10-11] VITALS (14 sets, daily range): BP systolic 119–150; BP diastolic 75–84; PULSE 64–76; RESP 12–18; TEMP 36.3–36.7; O2SAT 92–98; BMI 33.3
--- NOTE | 2024-10-11 | PATH_ITS ---
[facility] Accession Number: [id number] No. of containers..01 Tissue . 01 Material submitted: . prostate - PROSTATE CHIPS . 01 Diagnosis: PROSTATE CHIPS, TRANSURETHRAL PROSTATE TISSUE RESECTION: Benign prostatic tissue and associated inflamed urothelial mucosa with reactive cystitis cystica and follicular cystitis. Negative for in situ, or invasive malignancy. MRV 10/21/2024 1419 Local . 01 Electronically signed: . Shikha Roy MD, Pathologist NPI- [id number] . 01 Gross description: . Received in formalin with two identifiers and prostate chips, are multiple fragments of miner, rubbery soft tissue with no stones or hemorrhagic material, weighing 1 gram and aggregating to 3.1 x 2.2 x 0.9 cm. Submitted entirely in A1-A2. ([id number]) /MRV 10/15/2024 1630 Local . 01 Pathologist provided ICD-10: C67.9 . 01 CPT . 728457 Specimen Comment: A courtesy copy of this report has been sent to [facility] Pathology Performed at: [address] [address], [place], [place] [id number] MD Mandeep Chavez MD Phone: [phone]
[2024-10-11] MEDS: FAMOTIDINE 20 MG/2 ML VIAL IV (10:17)
[2024-10-11] MEDS: LACTATED RINGERS 1,000 ML 42 ML IV (10:18)
--- NOTE | 2024-10-11 10:36 | PM.PREOP ---
Pre-operative Note COVID-19 COVID-19 status: Not tested Interval Note History & Physical reviewed/Exam performed by Physician: Yes Changes to H&P: No
--- NOTE | 2024-10-11 11:20 | SUR.OPER ---
Lithotomy on padded OR bed, head on pillow, arms secured on padded arm boards at <90 degrees abduction. Legs secured in padded yellow fins stirrups.
[2024-10-11] MEDS: cefTRIAXone 2,000 MG in SODIUM CHLORIDE 0.9% 100 ML 200 MG IV (11:30)
[2024-10-11] MEDS: ACETAMINOPHEN IV 1,000 MG/100 ML VIAL 400 MG IV (11:35)
--- NOTE | 2024-10-11 12:09 | P.OP_ITS ---
Operative Date/Time/Diagnoses Date of procedure: 10/11/24 Time of procedure: 11:30 Pre-op diagnosis: Bladder mass Post-op diagnosis: other (prostatic median lobe) Procedure & Clinicians Procedure: Cystoscopy Transurethral resection of prostate Same procedure as scheduled: No (Mass appeared concerning for bladder mass, actually prostate tissue) Indications: 73 y/o M noted to have low-risk NMIBC who was found to have a 3cm mass concerning for either urothelial cell carcinoma or a residual intravesical median prostatic lobe that is anteriorly located. Discussed that although it appears consistent with a residual intravesical median prostatic lobe, the only way for me to say with certainty would be to move forward with a TURBT. Discuss ed options moving forward to include a repeat cystoscopy in 3 months (as he does not believe it was present in Jun during his last cystoscopy with Dr. Lion) vs a TURBT. He ultimately would prefer to know with certainty what it is. Therefore, will get him scheduled for a TURBT and return to Urology clinic to complete his preoperative evaluation. Surgeon: Edgardo Gambino Click Yes if Unassisted: Yes Anesthesia Type: General Operative Notes Findings: Anteriorly located prostatic median lobe Closure Type: not applicable Specimen(s): other (prostate chips) Applied: catheter Estimated Blood Loss (mL): 20 Blood products transfused: none Procedure in detail: Patient was identified in the preoperative holding area and consent confirmed. He was then brought to the operating room where general anesthesia was induced. He was then placed in the low lithotomy position. He was then prepped and draped in the usual sterile fashion. A surgical timeout was conducted and all were in agreement. Access to the bladder was obtained via a 21Fr cystoscope. Complete cystoscopy was then performed using a 30 and 70 degree lens. Bilateral ureteral orifice were easily visualized and noted to be orthotopic in nature. He had grade 3 trabeculations throughout his bladder, a 3cm mass was located anteriorly along his bladder neck, most consistent with an anteriorly located intravesical median prostatic lobe. The cystoscope was then removed and the 26Fr resectoscope with visual obturator was then advanced through his urethra and into his bladder. Of note, he was noted to have bridging of his prostatic tissue at the apex of his gland. The working element with Gyrus loop was then assembled and passed through the resectoscope and into the bladder. The aforementioned median lobe and bridge of tissue were then resected. All prostate specimens were then manually evacuated from the bladder using the resectoscope. Hemostasis was evaluated and noted to be excellent at case end. A 24Fr 3-way hematuria catheter was then inserted into his bladder, 45cc of sterile water was utilized for balloon insufflation. Continuous bladder irrigation was then initiated and it was noted to be clear. Anesthesia was reversed, he was extubated in the OR and transferred to the PACU in stable condition for recovery. Complications: none Post-operative Condition: stable Disposition: PACU Plan for aftercare: Will continue to run CBI for a few hours to evaluate the efflux from his catheter.? Should it remain relatively clear and with minimal blood clots, will discharge home with catheter in place and have him return to Urology clinic in 2 days for a voiding trial.? Should his efflux remain red or have significant clot burden, will admit overnight for observation and continued CBI.
[2024-10-11] MEDS: OXYCODONE IR 5 MG TABLET PO (12:20)
[2024-10-11] MEDS: PHENAZOPYRIDINE 100 MG TABLET 200 MG PO (12:30)
--- NOTE | 2024-10-11 12:32 | SUR.PHASEI ---
patient on continues bladder irrigation. this RN noticed that the bladder irrigation was dripping slowly. this RN attempted to irrigate the smith with no success and the catheter was still draining slow. Dr. Gambino notified and coming to see the patient. sharlene MUNOZ aware.
[2024-10-11] MEDS: HYDROMORPHONE 1 MG INJ IV (12:44)
--- NOTE | 2024-10-11 12:45 | SUR.PHASEI ---
Dr. Gambino at bedside.
[2024-10-11] MEDS: MEPERIDINE 50 MG/ML INJ 12.5 MG IV (12:58)
[2024-10-11] MEDS: hydrOXYzine 50 MG/ML INJ 25 MG IM (12:59)
[2024-10-11] MEDS: ONDANSETRON 4 MG/2 ML INJ IV (13:02)
[2024-10-11] MEDS: OXYBUTYNIN 5 MG TABLET PO (13:06)
--- NOTE | 2024-10-11 13:10 | SUR.PHASEI ---
Dr. Gambino at bedside and was able to get the catheter to drain patenly. patient alert and awake.
== END 2024-10-11 16:33 | disposition home or self-care (01) ==
PROVIDERS: PCP Internal Medicine; Referring Provider Urology; Visit Provider Urology
PROC: 0TBB8ZZ Excision of Bladder, Via Natural or Artificial Opening Endoscopic (ICD-10-PCS; CPT 52601; principal; 2024-10-11 11:15)
DX: N30.30 Trigonitis without hematuria (principal); R35.1 Nocturia; G89.29 Other chronic pain; Z87.442 Personal history of urinary calculi
CPT/HCPCS: 52601; J0131; J0696; J1100; J1171; J2175; J2405; J2704; J3010; J3410; J3490

== ENCOUNTER → 2024-10-21 14:09 | Outpatient (CLI) | payer MEDICARE, OTHER, SELFPAY | PROVIDERS: PCP Internal Medicine; Visit Provider Urology | DX: R33.9 Retention of urine, unspecified (principal) | CPT/HCPCS: 87086 ==

== ENCOUNTER → 2024-11-21 10:11 | Outpatient (CLI) | payer MEDICARE, OTHER, SELFPAY | PROVIDERS: PCP Internal Medicine; Visit Provider Urology | DX: N40.1 Benign prostatic hyperplasia with lower urinary tract symptoms (principal); R33.8 Other retention of urine; N39.0 Urinary tract infection, site not specified | CPT/HCPCS: 87077; 87086 ==

== ENCOUNTER → 2024-12-11 08:25 | Outpatient (CLI) | payer MEDICARE, OTHER, SELFPAY | PROVIDERS: PCP Internal Medicine; Visit Provider Urology | DX: R33.9 Retention of urine, unspecified (principal) | CPT/HCPCS: 87077; 87086; 87186 ==

== ENCOUNTER → 2025-01-13 08:21 | Outpatient (CLI) | payer MEDICARE, OTHER, SELFPAY ==
[2025-01-13 08:47] LABS: Appearance Urine UA SL CLOUDY; Bilirubin Urine UA NEGATIVE (NEGATIVE); Color Urine UA YELLOW; Glucose Urine UA NEGATIVE (Negative); Ketones Urine UA NEGATIVE (NEGATIVE); Leukocyte Esterase Urine UA 2+ (NEGATIVE); Nitrite Urine UA POSITIVE (Negative); Occult Blood Urine UA TRACE-INTACT (Negative); Protein Urine UA NEGATIVE (Negative); Specific Gravity Urine UA <=1.005 (1.000-1.035); Urobilinogen Urine UA 0.2 E.U./dL (0.2); pH Urine UA 6.0 (4.5-8.0)
[2025-01-13 08:52] LABS: Culture Indicated Urine Specimen Cultured
== END ==
PROVIDERS: PCP Internal Medicine; Referring Provider Urology; Visit Provider Urology
DX: N39.0 Urinary tract infection, site not specified (principal)
CPT/HCPCS: 81001; 87077; 87086; 87186

== ENCOUNTER → 2025-02-06 08:43 | Outpatient (CLI) | payer MEDICARE, OTHER, SELFPAY ==
[2025-02-06 12:49] LABS: Appearance Urine UA CLEAR; Bilirubin Urine UA NEGATIVE (NEGATIVE); Color Urine UA YELLOW; Glucose Urine UA NEGATIVE (Negative); Ketones Urine UA NEGATIVE (NEGATIVE); Leukocyte Esterase Urine UA 2+ (NEGATIVE); Nitrite Urine UA POSITIVE (Negative); Occult Blood Urine UA 1+ (Negative); Protein Urine UA NEGATIVE (Negative); Specific Gravity Urine UA 1.010 (1.000-1.035); Urobilinogen Urine UA 0.2 E.U./dL (0.2); pH Urine UA 7.0 (4.5-8.0)
[2025-02-06 13:01] LABS: Culture Indicated Urine Specimen Cultured
== END ==
PROVIDERS: PCP Internal Medicine; Visit Provider Urology
DX: R39.9 Unspecified symptoms and signs involving the genitourinary system (principal)
CPT/HCPCS: 81001; 87077; 87086; 87186

== ENCOUNTER 2025-02-25 09:43 | Outpatient (CLI) | payer MEDICARE, OTHER, SELFPAY ==
[2025-02-25] VITALS (9 sets, daily range): BP systolic 110–152; BP diastolic 43–76; PULSE 53–79; RESP 16–22; TEMP 36.9; O2SAT 96–99
[2025-02-25] MEDS: MIDAZOLAM 2 MG/2 ML VIAL IV (11:19)
[2025-02-25] MEDS: LIDOCAINE 1% 20 ML 5 ML INJ (11:24)
[2025-02-25] MEDS: LIDOCAINE 2% INJ MDV 20ML 5 ML INJ (11:24)
--- NOTE | 2025-02-25 11:36 | P.PCN_ITS ---
Date/Time/Diagnoses Date of procedure: 02/25/25 Time of procedure: 11:36 Pre-procedure diagnosis: 1. FACET ARTHROPATHY Post-procedure diagnosis: same Procedure Notes Procedure: 1. BILATERAL L3, L4 AND L5 DIAGNOSTIC MB BLOCKS Indications: Papo is referred by Dr. Saul for treatment of Bilateral Axial LBP. Physician: Piter Whyte Total Fluoroscopy time (seconds): 11 Total sedation minutes: 13 Complications: none Procedure in detail & Post-procedure care: DESCRIPTION OF PROCEDURE Fluoroscopically guided, contrast-controlled bilateral L3, L4 and L5 medial branch blocks with 0.5cc of 2% Lidocaine. Following review of allergy and review of potential side effects and complications, including, but not necessarily limited to, infection, allergic reaction, local tissue breakdown, nerve injury, paralysis, stroke and possible , the patient indicated that the patient understood and agreed to proceed. An informed consent document was signed by the patient, witnessed by a nurse, and placed in the patient's chart. After review of previous anaesthesic history and IV conscious sedation the patient was deemed safe to proceed with today's procedure with IV conscious sedation as ASA class II designation. Safety time-out was performed to confirm patient ID, procedure to be performed and site of procedure. IV sedation was accomplished with a combination of 2mg of Versed was administered by the RN after DO order, titrated to patient comfort during the course of the procedure while the patient remained responsive to all verbal commands In the prone position, following sterile prep and drape of the lumbar region, the right L3, L4 and L5 anatomical location of the medial branch of the dorsal ramus was identified fluoroscopically. Subsequently an anesthetic skin wheal using 1% lidocaine solution was initiated at each of the anatomical spots. Subsequently then a 22-gauge 3.5-inch spinal needle was atraumatically introduced and advanced under fluoroscopic guidance at each of the corresponding sites at the right L3, L4 and L5 MB. After negative aspiration, 0.2cc of Isovue 200 was injected, confirming placement without vascular or intrathecal uptake. Subsequently then 0.5cc of 2% Lidocaine solution was injected at each of the corresponding sites at the right L3, L4 and L5 medial branch locations. The identical procedure was replicated on the left. The patient tolerated the pro cedure well without signs or symptoms of complications. The patient tolerated the procedure well without signs or symptoms of complications prior to transfer to the recovery area continued monitoring without incident. Post-procedure, the patient was monitored initiating provocative activities to measure the amount of relief from block of the facetogenic pain. The patient reported a VAS of 7 prior to the procedure and a post-procedure VAS of 1. It has been a pleasure to assist in the diagnostic and therapeutic care of your patient. POST OP INSTRUCTIONS The patient was provided with a Pain Log to complete over the next several hours and subsequent days prior to the patient's follow up with the ordering physician. If the patient has communications department head relief to the solution applied, then they may be a candidate for medial branch rhizotomy. The patient is aware, was provided, once again, with a Pain Log and will follow up with the referring physician for review and clinical correlation
== END 2025-02-25 11:54 | disposition home or self-care (01) ==
LOC: RAD 09:43
PROVIDERS: PCP Internal Medicine; Referring Provider Physical Medicine & Rehabilitation; Visit Provider Physical Medicine & Rehabilitation
DX: M47.816 Spondylosis without myelopathy or radiculopathy, lumbar region (principal)
CPT/HCPCS: 64493; 64494; 99152; J2250

== ENCOUNTER 2025-04-10 10:42 | Outpatient (CLI) | payer MEDICARE, OTHER, SELFPAY ==
[2025-04-10] VITALS (13 sets, daily range): BP systolic 120–176; BP diastolic 65–94; PULSE 56–64; RESP 15–20; TEMP 36.8; O2SAT 94–99
[2025-04-10] MEDS: LIDOCAINE 1% 20 ML 5 ML INJ (12:29)
[2025-04-10] MEDS: MIDAZOLAM 2 MG/2 ML VIAL IV (12:29)
--- NOTE | 2025-04-10 13:07 | P.PCN_ITS ---
Date/Time/Diagnoses Date of procedure: 04/10/25 Time of procedure: 13:07 Pre-procedure diagnosis: 1. RECALCITRANT FACET ARTHROPATHY Post-procedure diagnosis: same Procedure Notes Procedure: 1. BILATERAL L3, L4 AND L5 MEDIAL BRANCH RADIOFREQUENCY NEUROTOMY Indications: Papo is referred by Dr. Saul for treatment of facet arthropathy. Physician: Piter Whyte Total Fluoroscopy time (seconds): 17 Total sedation minutes: 33 Complications: none Procedure in detail & Post-procedure care: DESCRIPTION OF PROCEDURE Bilateral L3, L4 and L5 medial branch radiofrequency neurotomy The patient is well known to this clinic having undergone previous facet injections with good but temporary relief. The patient has experienced appropriate, concordant relief with previous facet and median branch blocks but the patient's pain has been recalcitrant to further conservative measures. Therefore, based upon the patient's relief and persistent symptoms, the patient is considered an appropriate candidate for facet rhizotomy. All of the patient's questions regarding the risks versus benefits of the procedure, including, but not limited to, bleeding, infection, temporary as well as lasting nerve injury, paralysis, stroke, and , as well treatment alternatives were answered to satisfaction. After obtaining informed consent, denial of pertinent drug allergies, as well as being made aware of the potential risks of bleeding, infection, spinal cord trauma, paralysis, temporary and permanent nerve damage, seizure, stroke, and possible , the patient was brought to the fluoroscopy suite and positioned prone on the fluoroscopy table. After review of previous anaesthesic history and IV conscious sedation the patient was deemed safe to proceed with today's procedure with IV conscious sedation as ASA class II designation. Safety time-out was performed to confirm patient ID, procedure to be performed and site of procedure. IV sedation was accomplished with a combination of 2mg of Versed administered by the RN after DO order, titrated to patient comfort during the course of the procedure while the patient remained responsive to all verbal commands. The lumbar region was prepped in usual sterile fashion and covered with a fenestrated drape in the usual sterile fashion. Appropriate monitors applied including pulse oximeter, pulse, and blood pressure for regular monitoring throughout the procedure. After local infiltration using 1% lidocaine, under fluoroscopic guidance, a 10- cm RF insulated needle with a 10-mm active tip was positioned parallel to the junction of the right the superior articulating process where the L5 medial branch resides. Needle placement was confirmed with motor stimulation of .5v on the right which produced local stimulation without radicular component. The stimulation was then increased to 2v with, once again, only local multifidus stimulation without radicular component. The needle was then removed and the identical procedure was performed along the length of the right L4 medial branch with motor stimulation at .7v on the right. The identical procedure was once again performed along the length of the right L3 and medial branch with motor stimulation of .5v on the right. The medial branches were then anesthetised with 0.5% marcaine. This was then followed by two discreet lesions performed at 80 degrees Celsius for 90 seconds each. The identical procedures were repeated on the left. The patient tolerated the procedure well without signs or symptoms of complications prior to transfer to the recovery area continued monitoring withou t incident. The patient was then transferred to the recovery area where they were observed for an appropriate period of time after the injection. The patient reported a VAS score of 9 prior to the procedure and a post-procedure VAS of 0. POST OP INSTRUCTIONS The patient was provided a Pain Log to continue to record the patient's response to the target-specific procedure prior to the patient's follow-up visit with the referring physician. Additionally, specific post-injection care instructions and a contact number to our office were provided if concerns arise regarding possible complications associated with the procedure are suspected.
== END 2025-04-10 14:12 | disposition home or self-care (01) ==
LOC: RAD 10:42
PROVIDERS: PCP Internal Medicine; Referring Provider Physical Medicine & Rehabilitation; Visit Provider Physical Medicine & Rehabilitation
DX: M47.816 Spondylosis without myelopathy or radiculopathy, lumbar region (principal)
CPT/HCPCS: 64635; 64636; 99152; 99153; J2250